=== PATIENT | male | born 1980 | race Caucasian/White ===

== ENCOUNTER 2021-10-30 18:08 | Emergency (ER) | payer BC, SELFPAY ==
[2021-10-30 18:19] VITALS: BP 163/79; PULSE 87; RESP 16; TEMP 36.6; O2SAT 98
--- NOTE | 2021-10-30 18:22 | ED.URI ---
HPI - URI/Sore Throat General Chief Complaint: Upper Respiratory Infection Stated Complaint: Sore throat Time Seen by Provider: 10/30/21 18:35 Source: patient and RN notes reviewed Mode of arrival: ambulatory Limitations: no limitations History of Present Illness HPI Narrative: 41-year-old male presents with concern for sore throat, right ear pain, painful swallowing, painful opening of the mouth. Reports 2-day history of symptoms. He reports trouble taking medications because of the painful swallowing. Reports his was previously diagnosed with strep throat. He denies drooling. Reports he is able to swallow, however it is painful MD elicited complaint: cough and sore throat Related Data Allergies Allergy/AdvReac Type Severity Reaction Status Date / Time No Known Allergies Allergy Unverified 10/30/21 18:22 Review of Systems Review of Systems: CONSTITUTIONAL: Denies malaise, chills, sweats, or fever. EYES: Denies visual changes, redness, or discharge. ENT: Denies rhinorrhea, congestion, sinus pain. Reports otalgia and sore throat. CARDIOVASCULAR: Denies chest pain, palpitations, or edema. RESPIRATORY: Reports cough. Denies dyspnea. GASTROINTESTINAL: Denies abdominal pain, nausea, vomiting, diarrhea SKIN: Denies rash or itching. MUSCULOSKELETAL: Denies myalgia. NEUROLOGIC: Denies headache. All systems reviewed & are unremarkable except as noted in HPI and below PMFSH Family History Family History (Updated 03/14/10 @ 08:57 by DOCTOR UNKNOWN) Other Family history of mental disorder Social History Social History Alcohol intake: current Comments At time of signature, agree with nursing past medical, surgical, social and family history. There is no relevant family history pertinent to the presenting complaint Exam Narrative: GENERAL: Well-appearing, well-nourished, and in no acute distress. HEAD: Normocephalic EYES: PERRLA, conjunctivae clear ENT: Nares clear. Mucous membranes moist. TM pearly arroyo with dull light reflex bilaterally; no tragal tenderness. Oropharynx erythematous without lesions. Right tonsil enlarged with white exudate, no drooling, no hoarseness, no trismus, uvula midline. No peritonsillar abscess visible, no hot potato voice NECK: Supple. No lymphadenopathy CHEST: Clear to auscultation, breath sounds equal. No wheezing, rhonchi, rales, or stridor. No respiratory distress, speaks in full sentences. HEART: Regular rate and rhythm. No murmur heard. SKIN: Warm, dry, no rash. NEURO: Alert and oriented x3. PSYCH: Normal mood and affect Course Course Emergency Course: Due to the size of the patient's right tonsil and amount of exudate, patient's report of difficulty swallowing medication will treat with IM Rocephin and Solu-Medrol to be followed up with p.o. penicillin and Medrol Dosepak. Patient given strict instructions for return to the emergency room. Patient is aware of diagnosis, understands and agrees to treatment plan. Anticipatory guidance given. Patient agrees to follow-up as directed and is aware of reasons to seek care at the emergency department. Portions of this record may have been created with voice recognition software Level of Care: Express Care Visit Vital Signs Vital signs: Reviewed. MDM - URI/Sore Throat MDM Narrative Medical decision making narrative: Differential diagnosis considered: Joshua virus, strep pharyngitis, allergic rhinitis, upper respiratory tract infection, sinusitis, rhinosinusitis, nasopharyngitis. viral pharyngitis, otitis media, otitis externa, pneumonia, bronchitis, viral cough syndrome, viral syndrome, and influenza. Exam findings show no acute concerns or changes; patient is non-toxic appearing and is in no distress. Patient is appropriate for outpatient treatment and follow-up. Lab Data Attestation: I reviewed the patient's lab results. Critical Care Time Critical Care Time Critical Care Time: No Discharge Plan Discharge Clinical I
[2021-10-30 18:29] VITALS: BP 163/79; PULSE 87; RESP 16; TEMP 36.6; O2SAT 98
[2021-10-30] MEDS: methylPREDNISolone SOD SUCC 125 MG VIAL IM (18:46)
[2021-10-30] MEDS: cefTRIAXone 1 GM, LIDOCAINE HCL 1% LOCAL INJ 2.1 ML IM (18:47)
== END 2021-10-30 19:17 | disposition home or self-care (01) ==
PROVIDERS: Emergency Provider Nurse Practitioner
DX: J02.9 Acute pharyngitis, unspecified (principal)
CPT/HCPCS: 87081; 87880; 96372; 99204; G0463; J0696; J2930

== ENCOUNTER 2021-11-09 17:13 | Emergency (ER) | payer BC, SELFPAY ==
--- NOTE | 2021-11-09 17:17 | ED.EAR ---
HPI - Ear Problem General Chief complaint: Ear Stated complaint: Ear infection Time Seen by Provider: 11/09/21 17:18 Source: patient and RN notes reviewed History of Present Illness HPI Narrative: Patient is a 41-year-old male who presents to the urgent care with complaints of right ear pain since Friday. Patient states that he was recently on amoxicillin for strep throat however that antibiotic has been completed. Patient denies any other upper respiratory complaints. Patient states that he has been using Tylenol and Advil for pain. No other acute complaints. No acute distress noted. Patient aware of the plan of care. Some parts of this dictation were generated by voice recognition software and may contain typographical and/or grammatical inaccuracies. Related Data Allergies Allergy/AdvReac Type Severity Reaction Status Date / Time No Known Allergies Allergy Unverified 10/30/21 18:22 Review of Systems Review of Systems: CONSTITUTIONAL: Denies fever, chills, or sweats. EYES: Denies visual changes, redness, or discharge. ENT: Denies rhinorrhea, congestion, sore throat. reports of right otalgia CARDIOVASCULAR: Denies chest pain, palpitations, or edema. RESPIRATORY: Denies cough or dyspnea. GASTROINTESTINAL: Denies abdominal pain, nausea, vomiting, or diarrhea. GENITOURINARY: Denies dysuria or hematuria. SKIN: Denies rash or itching. MUSCULOSKELETAL: Denies back pain, joint pain, or myalgia. NEUROLOGIC: Denies headache, numbness, or weakness. All other systems reviewed are negative, except as documented in HPI. REPLACED BY [facility] Family History Family History (Updated 03/14/10 @ 08:57 by DOCTOR UNKNOWN) Other Family history of mental disorder Social History Social History Alcohol intake: current Comments At the time of my signature, I reviewed and agree with the nursing past medical, surgical, social, and family history. There is no relevant family history pertinent to the patient complaint. Exam Narrative: GENERAL: This is a well-nourished, well-developed patient, in no apparent distress. HEAD: normocephalic, atraumatic. EYES: PERRL. Sclera clear/white. Vision is grossly intact. EARS: External ears normal, completely occluded right auditory canal with thick yellow drainage and inability to visualize right TM. Left auditory canal within normal limits with no otitis externa/media. Left TM within normal limits NOSE: External nose normal with no obvious nasal discharge, nares without redness, no rhinorrhea. THROAT: Mucous membranes moist, posterior pharynx clear. NECK: Neck supple CARDIOVASCULAR: Regular rate and rhythm without murmurs, gallops, or rubs. RESPIRATORY: Clear to auscultation. Breath sounds equal bilaterally. No wheezes, rales, or rhonchi. SKIN: warm, intact with no suspicious lesions or rash, good texture and turgor. NEURO: awake, alert, and oriented to person, place and time. There were no obvious focal neurologic abnormalities. EXTREMITIES: No clubbing, cyanosis, or edema. Course Course Level of Care: Express Care Visit Vital Signs Vital signs: Vital Signs Temperature 98.5 F 11/09/21 17:25 Pulse Rate 83 11/09/21 17:25 Respiratory Rate 18 11/09/21 17:25 Blood Pressure 131/77 11/09/21 17:25 Pulse Oximetry 100 11/09/21 17:25 Oxygen Delivery Room Air 11/09/21 17:25 Temperature 98.5 F 11/09/21 17:28 Pulse Rate 83 11/09/21 17:28 Respiratory Rate 18 11/09/21 17:28 Blood Pressure 131/77 11/09/21 17:28 Pulse Oximetry 100 11/09/21 17:28 Oxygen Delivery Room Air 11/09/21 17:28 Reviewed Medical Decision Making MDM Narrative Medical decision making narrative: Advised the patient not to submerge his head in any water or use Q-tips, peroxide, [id number] eardrops in the ear. Use the eardrops to the right ear as directed. May use a warm or cool compress to the ear as needed for discomfort. Use Tylenol/ibuprofen as needed. Complete the oral antibiotic reg
[2021-11-09 17:25] VITALS: BP 131/77; PULSE 83; RESP 18; TEMP 36.9; O2SAT 100
[2021-11-09 17:28] VITALS: BP 131/77; PULSE 83; RESP 18; TEMP 36.9; O2SAT 100
== END 2021-11-09 18:07 | disposition home or self-care (01) ==
PROVIDERS: Emergency Provider Nurse Practitioner Family
DX: H60.501 Unspecified acute noninfective otitis externa, right ear (principal)
CPT/HCPCS: 99213; G0463

== ENCOUNTER 2022-05-16 14:01 | Outpatient (CLI) | payer BC, SELFPAY ==
[2022-05-16 19:16] LABS: Basophils Percent Auto 0.5 % (0.2-1.2); Eosinophils Absolute Auto 0.2 K/mm3 (0-0.3); Eosinophils Percent Auto 2.3 % (0-4.4); Hematocrit 45.4 % (42.0-52.0); Hemoglobin 15.2 g/dL (14.0-18.0); Immature Granulocyte Absolute 0.05 K/mm3 (0.00-0.031); Immature Granulocyte Percent A 0.6 % (0-0.5); Lymphocytes Absolute Auto 2.71 K/mm3 (0.9-3.2); Lymphocytes Percent Auto 32.3 % (18.3-44.2); Mean Corpuscular HGB Conc 33.5 g/dl (32-36); Mean Corpuscular Hemoglobin 31.1 pg (26-34); Mean Platelet Volume 9.9 fl (7.4-10.4); Monocytes Absolute Auto 0.6 K/mm3 (0.1-0.6); Monocytes Percent Auto 7.3 % (2.6-8.5); Neutrophils Absolute Auto 4.8 K/mm3 (1.3-6.7); Platelet Count Result 254 k/mm3 (150-375); Red Blood Count 4.88 M/mm3 (4.6-6.20); White Blood Count 8.4 K/mm3 (4.5-10.0)
[2022-05-16 20:07] LABS: Alanine Aminotransferase 33 U/L (6-50); Albumin Level 4.3 g/dL (3.5-5.1); Alkaline Phosphatase 93 U/L (38-126); Anion Gap 8 mmol/L (8-16); Aspartate Amino Transferase 33 U/L (17-59); Bilirubin,Total 0.2 mg/dL (0.2-1.3); Blood Urea Nitrogen 17 mg/dL (9-20); Carbon Dioxide 25 mmol/L (22-30); Chloride 110 mmol/L (98-107); Cholesterol 211 mg/dL (0-200); Estimated Glomerular Filt Rate > 60; Glucose 118 mg/dL (65-110); HDL Direct 30 mg/dL; Potassium 4.3 mmol/L (3.4-5.0); Sodium 143 mmol/L (137-145); Triglycerides 506 mg/dL (<150)
[2022-05-16 20:17] LABS: LDL Cholesterol Direct 105 mg/dL
== END 2022-05-16 14:02 | disposition home or self-care (01) ==
LOC: ANHBWCLAB 14:03
PROVIDERS: PCP Family Medicine; Visit Provider Family Medicine
DX: Z00.00 Encounter for general adult medical examination without abnormal findings (principal)
CPT/HCPCS: 36415; 80053; 80061; 85025

== ENCOUNTER 2023-01-06 14:07 | Outpatient (CLI) | payer BC, SELFPAY ==
[2023-01-06 19:00] LABS: Appearance Urine Clear (Clear); Bilirubin Urine Negative (Negative); Blood Urine Negative (Negative); Color Urine Yellow (Yellow); Glucose Urine UA 3+ mg/dL (Negative); Ketones Urine Trace mg/dL (Negative); Leukocyte Esterase Ur Negative LEU/UL (Negative); Nitrate Urine Negative (Negative); Protein Urine Negative (Negative); Urobilinogen Urine 0.2 mg/dL (<2.0); pH Urine 5.5 (5.0-9.0)
[2023-01-06 19:07] LABS: Hematocrit 48.1 % (42.0-52.0); Hemoglobin 18.2 g/dL (14.0-18.0); Mean Corpuscular HGB Conc 37.8 g/dl (32-36); Mean Corpuscular Hemoglobin 34.5 pg (26-34); Mean Corpuscular Volume 91.3 fl (80-100); Mean Platelet Volume 10.9 fl (7.4-10.4); Platelet Count Result 241 k/mm3 (150-375); Red Blood Count 5.27 M/mm3 (4.6-6.20); Red Cell Distribution Width 12.6 % (11.5-14.5); Specific Grav Ur 1.038 (1.001-1.035); White Blood Count 10.3 K/mm3 (4.5-10.0)
[2023-01-06 19:08] LABS: Add Urine Microscopic? NO
[2023-01-06 19:47] LABS: Alanine Aminotransferase 51 U/L (6-50); Alkaline Phosphatase 162 U/L (38-126); Anion Gap 13 mmol/L (8-16); Aspartate Amino Transferase 30 U/L (17-59); Bilirubin,Total 0.7 mg/dL (0.2-1.3); Blood Urea Nitrogen 19 mg/dL (9-20); Carbon Dioxide 21 mmol/L (22-30); Chloride 91 mmol/L (98-107); Estimated Glomerular Filt Rate 60; Glucose 615 mg/dL (65-110); LDL Cholesterol Direct 156 mg/dL; Potassium 4.7 mmol/L (3.4-5.0); Sodium 125 mmol/L (137-145); Triglycerides > 2625 mg/dL (<150)
[2023-01-06 19:48] LABS: Cholesterol 501 mg/dL (0-200)
[2023-01-06 20:54] LABS: Hemoglobin A1C 10.8 % (<5.7)
== END 2023-01-06 14:08 | disposition home or self-care (01) ==
LOC: ANHBWCLAB 14:09
PROVIDERS: PCP Family Medicine; Visit Provider Nurse Practitioner Adult Health
DX: R73.09 Other abnormal glucose (principal); E78.5 Hyperlipidemia, unspecified; R63.4 Abnormal weight loss; R39.9 Unspecified symptoms and signs involving the genitourinary system
CPT/HCPCS: 36415; 80053; 80061; 81003; 83036; 84443; 85027

== ENCOUNTER 2023-01-06 23:03 | Inpatient (IN) | payer BC, SELFPAY ==
[2023-01-06 23:07] VITALS: BP 159/94; PULSE 110; RESP 20; TEMP 36.6; O2SAT 93
[2023-01-06 23:27] LABS: Glucose Point of Care > 500 mg/dl (65-105)
[2023-01-06 23:31] LABS: Basophils Absolute Auto 0.1 K/mm3 (0.0-0.1); Basophils Percent Auto 0.5 % (0.2-1.2); Eosinophils Absolute Auto 0.1 K/mm3 (0-0.3); Eosinophils Percent Auto 0.6 % (0-4.4); Hematocrit 45.8 % (42.0-52.0); Hemoglobin 17.3 g/dL (14.0-18.0); Immature Granulocyte Absolute 0.03 K/mm3 (0.00-0.031); Immature Granulocyte Percent A 0.3 % (0-0.5); Lymphocytes Absolute Auto 2.59 K/mm3 (0.9-3.2); Lymphocytes Percent Auto 27.2 % (18.3-44.2); Mean Corpuscular HGB Conc 37.8 g/dl (32-36); Mean Corpuscular Hemoglobin 34.3 pg (26-34); Mean Corpuscular Volume 90.7 fl (80-100); Mean Platelet Volume 10.5 fl (7.4-10.4); Monocytes Absolute Auto 0.8 K/mm3 (0.1-0.6); Monocytes Percent Auto 8.4 % (2.6-8.5); Platelet Count Result 245 k/mm3 (150-375); Red Blood Count 5.05 M/mm3 (4.6-6.20); Red Cell Distribution Width 12.5 % (11.5-14.5); White Blood Count 9.5 K/mm3 (4.5-10.0)
[2023-01-07] VITALS (16 sets, daily range): BP systolic 127–160; BP diastolic 59–102; PULSE 68–94; RESP 14–22; TEMP 36.8–37; O2SAT 95–100; BMI 34.1
[2023-01-07 00:22] LABS: Alanine Aminotransferase 50 U/L (6-50); Albumin Level 4.1 g/dL (3.5-5.1); Alkaline Phosphatase 152 U/L (38-126); Aspartate Amino Transferase 33 U/L (17-59); Bilirubin,Total 0.8 mg/dL (0.2-1.3); Blood Urea Nitrogen 22 mg/dL (9-20); Calcium 8.9 mg/dL (8.4-10.2); Chloride 89 mmol/L (98-107); Estimated CRCL calculation 101 ml/min; Estimated Glomerular Filt Rate > 60; Glucose 794 mg/dL (65-110); Magnesium 1.9 mg/dL (1.6-2.3); Potassium 5.1 mmol/L (3.4-5.0); Sodium 119 mmol/L (137-145)
[2023-01-07] MEDS: SODIUM CHLORIDE 0.9% IV 2,000 ML 999 ML (01:27)
[2023-01-07] MEDS: SODIUM CHLORIDE 0.9% IV 1,000 ML 999 ML IV CONT (02:15)
--- NOTE | 2023-01-07 02:40 | ED.GENADULT ---
HPI - General Adult General Chief complaint: Recheck/Abnormal Lab/Rx Stated complaint: high BS Time Seen by Provider: 01/07/23 01:45 History of Present Illness HPI narrative: Patient for 2-year-old gentleman who presents the emergency department chief complaint of hyperglycemia. The patient reports that he has been thirsty all the time peeing all the time and reports that he saw his primary care provider and had outpatient labs done today they were showed a blood sugar in the 600s and his primary doctor sent him to the emergency department for possible HHS. Patient denies fever denies cough denies shortness of breath denies abdominal pain. Patient reports no prior history of diabetes. Related Data Home Medications Medication Instructions Recorded Confirmed Vicoprofin BYMOUTH 05/16/22 01/06/23 Allergies Allergy/AdvReac Type Severity Reaction Status Date / Time No Known Allergies Allergy Unverified 01/06/23 13:39 Review of Systems Review of Systems: A 10 system review of systems was completed on the patient and is negative except for what is stated in the HPI. Nursing and ancillary documentation was reviewed. [facility] Family History Family History Father Asthma History of ETOH abuse Sibling History of ETOH abuse Grandparent Cancer Other Family history of mental disorder Social History Social History Smoking packs per day: 1 Smoking cigarettes per day: 20.0 Smoking status: Former smoker Tobacco type: cigarettes Alcohol intake: current Alcohol use details: occasionally Substance use: never Substance use type: does not use Lack of Transportation: No Lack of Food: Never True Current Housing: I Have Housing Concerned About Future Housing: No Difficulty Paying Gas/Electric Bills: No Difficulty Paying for Meds: No Currently Unemployed: No Education: Decline to Answer Difficulty w/ Childcare or Family Care: Decline to Answer Living arrangements: alone Occupation/Education: occupation 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 HEAD: Normocephalic, atraumatic. EYES: PERRLA and EOMI. ENT: Nares clear, no rhinorrhea or epistaxis. Mucous membranes moist. NECK: Supple. CHEST: Clear to auscultation. No respiratory distress. HEART: Regular rate and rhythm. No murmur heard. Normal peripheral pulses. ABDOMEN: Soft, nontender, nondistended, normal active bowel sounds. EXTREMITIES: Normal range of motion. No edema. SKIN: Warm, dry, no rash. NEURO: No focal deficits. Alert and oriented x3. PSYCH: Normal mood and affect. Course Vital Signs Vital signs: Vital Signs Temperature 36.6 C 01/06/23 23:07 Pulse Rate 110 H 01/06/23 23:07 Respiratory Rate 20 01/06/23 23:07 Blood Pressure 159/94 H 01/06/23 23:07 Pulse Oximetry 93 01/06/23 23:07 Oxygen Delivery Room Air 01/06/23 23:07 Temperature 36.6 C 01/06/23 23:07 Pulse Rate 92 01/07/23 02:20 Respiratory Rate 15 01/07/23 02:20 Blood Pressure 160/102 H 01/07/23 02:20 Pulse Oximetry 98 01/07/23 02:20 Oxygen Delivery Room Air 01/06/23 23:07 Medical Decision Making MDM Narrative Medical decision making narrative: Differential diagnosis includes DKA, HHS, hyperglycemia. Laboratory studies were obtained on the patient which showed a sodium of 119 potassium of 5.1 BUN of 22 creatinine 1.2 serum glucose was 794. Patient was given 3 L of normal saline in the emergency department and will be continued on hydration given the significantly elevated blood sugars the patient was started on insulin drip. Beta hydroxybutyrate was 0.2 and the patient shows no signs of
[2023-01-07 03:09] LABS: Hemoglobin A1C 10.9 % (<5.7)
[2023-01-07] MEDS: INSULIN HUMAN REGULAR (*BKC) 100 UNITS in SODIUM CHLORIDE 0.9% IV 99 ML 14.7 UNITS IV CONT (03:22)
[2023-01-07] MEDS: HYDROcodone/acetaminophen (*CRX) 10-325 MG TABLET 1 TAB PO ×4 (03:31→19:00)
[2023-01-07 03:56] LABS: Glucose Point of Care 423 mg/dl (65-105)
[2023-01-07 04:49] LABS: Blood Urea Nitrogen 19 mg/dL (9-20); Calcium 8.2 mg/dL (8.4-10.2); Chloride 101 mmol/L (98-107); Estimated CRCL calculation 120 ml/min; Estimated Glomerular Filt Rate > 60; Glucose 339 mg/dL (65-110); Magnesium 1.9 mg/dL (1.6-2.3); Phosphorus 4.1 mg/dL (2.5-4.5); Potassium 4.2 mmol/L (3.4-5.0); Sodium 132 mmol/L (137-145)
[2023-01-07 04:59] LABS: Glucose Point of Care 329 mg/dl (65-105)
[2023-01-07] MEDS: SODIUM CHLORIDE 0.9% IV 1,000 ML 150 ML IV CONT (05:04)
--- NOTE | 2023-01-07 05:09 | ADMGEN ---
This patient, Shyam Joel, was admitted to Intensive Care Unit-6. Patient/family oriented to hospital policies and general routines including ID bracelet, bed and alarms, visiting hours, pain management, procedures, bathroom and other care routines, personal items, smoking policy, room service/diet, and visiting hours. Information on how to activate the Rapid Response Team has been discussed. Patient/Family are encouraged to report perceived risks to care and to ask questions if they do not understand what they are told or what they should do.
[2023-01-07 06:04] LABS: Glucose Point of Care 264 mg/dl (65-105)
[2023-01-07 06:57] LABS: Glucose Point of Care 199 mg/dl (65-105)
--- NOTE | 2023-01-07 07:35 | PM.IMHP ---
H&P: HPI History of Present Illness Date/Time: 01/07/23 07:35 Chief Complaint: hyperglycemia Narrative: 42-year-old male with history of ankle injury on chronic hydrocodone is presenting with hyperglycemia complaining of polyuria and polydipsia for the last several days. He has no family history or personal history of hyperglycemia or diabetes. No chest pain or shortness of breath. No nausea, vomiting or diarrhea. No fevers or chills. He did note some brain fogginess and went to his PCP who did some fasting blood work. When his sugar came back over 600 they called him and told him to go to the ER. In the ER, he was started on insulin drip and sent to the ICU for further management. Review of Systems Review of Systems: 12 point review of systems was assessed and was negative except as noted in the HPI [facility] Family History Family History Father Asthma History of ETOH abuse Sibling History of ETOH abuse Grandparent Cancer Other Family history of mental disorder Social History Social History Smoking packs per day: 0.75 Smoking cigarettes per day: 15.0 Years smoked: 28 Smoking pack-years: 21.00 Smoking status: Current every day smoker Tobacco type: cigarettes Alcohol intake: never Alcohol use details: occasionally Substance use: never Substance use type: does not use Lack of Transportation: No Lack of Food: Never True Current Housing: I Have Housing Concerned About Future Housing: No Difficulty Paying Gas/Electric Bills: No Difficulty Paying for Meds: No Currently Unemployed: No Education: Decline to Answer Difficulty w/ Childcare or Family Care: No Living arrangements: alone Occupation/Education: occupation 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 Gender identity (if verbalized by the patient): Male Spiritual care concerns: No Agree to blood products: Yes Meds Home Medications and Allergies Home Medications Medication Instructions Recorded Confirmed Type hydrocodone 10 mg-acetaminophen 1 tablet PO Q6H PRN pain 01/07/23 01/07/23 History 325 mg tablet Allergies Allergy/AdvReac Type Severity Reaction Status Date / Time No Known Allergies Allergy Unverified 01/06/23 13:39 Vital Signs Vital Signs - 24 hr 01/06/23 23:07 01/07/23 02:20 01/07/23 04:01 Temperature 97.8 F Pulse Rate 110 H 92 90 Respiratory Rate 20 15 15 Blood Pressure 159/94 H 160/102 H 160/98 H Pulse Oximetry 93 98 100 Oxygen Delivery Room Air 01/07/23 05:16 01/07/23 06:00 01/07/23 06:00 Temperature Pulse Rate 80 80 87 Respiratory Rate 18 Blood Pressure 135/82 Pulse Oximetry 96 Oxygen Delivery Room Air 01/07/23 04:30 Temperature 98.5 F Pulse Rate 89 Respiratory Rate 17 Blood Pressure 151/93 H Pulse Oximetry 95 Oxygen Delivery Exam Narrative: General: No acute distress, alert and oriented per baseline HEENT: Atraumatic, normocephalic, mucous membranes moist CV: Regular rate and rhythm, S1, S2 Lungs: Clear to auscultation bilaterally, no rales or crackles noted, no wheezes, good air entry Abdomen: Soft, nontender, nondistended Extremities: Normal to inspection Skin: No rashes noted, no lesions or wounds seen Psych: Euthymic, normal affect H&P: Results Labs Labs: Short CBC 01/06/23 Range/Units 23:21 WBC 9.5 (4.5-10.0) K/mm3 Hgb 17.3 (14.0-18.0) g/dL Hct 45.8 (42.0-52.0) % Plt Count 245 (150-375) k/mm3 [facility] 01/06/23 01/07/23 23:21 04:07 Sodium 119 L* 132 L Potassium 5.1 H 4.2 Chloride 89 L 101 Carbon Dioxide TNP TNP BUN 22 H 19 Creatinine 1.20 1.00 Glucose 794 H* 339 H Calcium 8.9 8.2 L Liver Function 01/06/23 Range/Units 23:21 Total Bilirubin 0.8 (0.2-1.3) mg/dL AST 33 (17-59) U/L ALT 50 (6-50) U/L Alk
[2023-01-07 08:07] LABS: Glucose Point of Care 146 mg/dl (65-105)
[2023-01-07 09:06] LABS: Basophils Percent Auto 0.4 % (0.2-1.2); Eosinophils Absolute Auto 0.2 K/mm3 (0-0.3); Eosinophils Percent Auto 2.1 % (0-4.4); Hematocrit 40.7 % (42.0-52.0); Hemoglobin 15.2 g/dL (14.0-18.0); Immature Granulocyte Absolute 0.03 K/mm3 (0.00-0.031); Immature Granulocyte Percent A 0.4 % (0-0.5); Lymphocytes Absolute Auto 2.72 K/mm3 (0.9-3.2); Mean Corpuscular HGB Conc 37.3 g/dl (32-36); Mean Corpuscular Hemoglobin 33.2 pg (26-34); Mean Corpuscular Volume 88.9 fl (80-100); Mean Platelet Volume 10.1 fl (7.4-10.4); Monocytes Absolute Auto 0.5 K/mm3 (0.1-0.6); Monocytes Percent Auto 6.6 % (2.6-8.5); Neutrophils Absolute Auto 4.3 K/mm3 (1.3-6.7); Neutrophils Percent Auto 55.5 % (45.5-73.1); Platelet Count Result 197 k/mm3 (150-375); Red Blood Count 4.58 M/mm3 (4.6-6.20); Red Cell Distribution Width 12.4 % (11.5-14.5); White Blood Count 7.8 K/mm3 (4.5-10.0)
--- NOTE | 2023-01-07 09:28 | WPDCNINT ---
Assessment and Plan Assessment and plan (1) Hyperosmolar hyperglycemic state (HHS): Code(s): E11.00 - Type 2 diabetes mellitus with hyperosmolarity without nonketotic hyperglycemic-hyperosmolar coma (NKHHC) Status: Acute Assessment and Plan: Patient appears to have a new onset of diabetes mellitus and presented with elevated blood sugars and dehydration Ketones were negative No objective sign of infection Patient was given IV fluid bolus and started on IV fluid infusion which will be continued IV insulin infusion we continued. Although his blood sugars improved IV insulin infusion will be continued due to hypertriglyceridemia Serial labs are being done Consult unit educator and dietitian P.r.n. Dani (2) Hypertriglyceridemia: Code(s): E78.1 - Pure hyperglyceridemia Status: Acute Assessment and Plan: Continue IV insulin. I will add dextrose to IV fluids once I am able to get electrolytes confirmed Patient sample has hemolyzed multiple times and lab is unable to run electrolytes. This could be secondary to lipemia Continue IV insulin at current rate long with normal saline. Once potassium level is back, I will change IV fluids to dextrose to increase the insulin rate.. Continue monitoring triglyceride level Add statin Check lipase (3) Type 2 diabetes mellitus: Code(s): E11.9 - Type 2 diabetes mellitus without complications Status: Acute Assessment and Plan: See above (4) Right ankle pain: Code(s): M25.571 - Pain in right ankle and joints of right foot Status: Acute Assessment and Plan: P.r.n. hydrocodone (5) Tobacco abuse: Code(s): Z72.0 - Tobacco use Status: Acute Assessment and Plan: Patient was encouraged and counseled to quit smoking. Plan DVT prophylaxis -patient is ambulating Stress ulcer prophylaxis -he is on PPI Nutrition -low-fat diabetic diet Code Status - Full Code Total Critical Care Time - 32 minutes Due to a high probability of clinically significant, life threatening deterioration, the patient required my highest level of preparedness to intervene emergently and I personally spent this critical care time directly and personally managing the patient. This critical care time included obtaining a history; examining the patient; pulse oximetry; ordering and review of studies; arranging urgent treatment with development of a management plan; evaluation of patient's response to treatment; frequent reassessment; and discussions with other providers. It was exclusive of separately billable procedures and treating other patients and teaching time. Please see Assessment and Plan section and the rest of the note for further information on patient assessment and treatment Study Manager Consult Note Consult date: 01/07/23 Reason for consult: Hyperglycemia HPI: Shyam Joel is a 42 year old male with significant past medical history who presented to ER yesterday with chief complaint of polyuria and polydipsia for last 5-6 days. Patient states he has been feeling sick for last 1 week. He was urinating every 20-30 minutes. No blood in the urine. No dysuria. He was also drinking lot of water. Along with patient had nausea and vomiting. He also felt weak and tired. His appetite was down and he had lost weight last few weeks. He denied any chest pain shortness of breath abdominal pain fever cough. Denies any dysuria hematuria hematochezia melena hemoptysis. Review of system was positive for chronic pain in the right ankle from past injury and surgery for which he takes hydrocodone at home. All other systems were reviewed and were negative In ER patient was found to be hyperglycemic with blood sugar above 700, his ketones were negative he had triglyceride level above 2000. Patient was admitted with diagnosis of hyperosmolar state and started on IV fluids and IV insulin infusion. Patient was admitted to ICU for further evalua
[2023-01-07] MEDS: PANTOPRAZOLE SODIUM IV 40 MG VIAL IV PUSH (09:30)
[2023-01-07] MEDS: ATORVASTATIN 40 MG TABLET 80 MG PO (09:30)
[2023-01-07 09:39] LABS: Glucose Point of Care 141 mg/dl (65-105)
[2023-01-07 09:55] LABS: Sodium 133 mmol/L (137-145)
[2023-01-07 09:56] LABS: Bilirubin,Total 0.6 mg/dL (0.2-1.3); Blood Urea Nitrogen 15 mg/dL (9-20); Chloride 107 mmol/L (98-107); Estimated CRCL calculation 147 ml/min; Estimated Glomerular Filt Rate > 60
[2023-01-07 09:57] LABS: Alanine Aminotransferase 36 U/L (6-50); Albumin Level 3.6 g/dL (3.5-5.1); Alkaline Phosphatase 84 U/L (38-126); Aspartate Amino Transferase 28 U/L (17-59); Glucose 128 mg/dL (65-110)
[2023-01-07 09:58] LABS: Cholesterol 396 mg/dL (0-200)
[2023-01-07 10:29] LABS: Hemoglobin A1C 11.2 % (<5.7)
[2023-01-07 10:52] LABS: Glucose Point of Care 267 mg/dl (65-105)
[2023-01-07] MEDS: KCL 20 MEQ/D5/0.45% SOD CHL 1,000 ML 150 ML IV CONT ×2 (10:53→17:00)
--- NOTE | 2023-01-07 11:56 | PC.NURSE ---
Outpatient referral started for outpatient DSMT and MNT. Faxed to PCP- Soto Ahuja.
[2023-01-07 12:19] LABS: Glucose Point of Care 262 mg/dl (65-105)
[2023-01-07] MEDS: NICOTINE (*PBKC) 14 MG PATCH 1 PATCH TRANSDERM (12:56)
[2023-01-07] MEDS: INSULIN HUMAN REGULAR (*BKC) 100 UNITS in SODIUM CHLORIDE 0.9% IV 99 ML 14.14 UNITS IV CONT (12:58)
[2023-01-07 13:02] LABS: Glucose Point of Care 263 mg/dl (65-105)
[2023-01-07 14:07] LABS: Glucose Point of Care 196 mg/dl (65-105)
[2023-01-07 15:09] LABS: Glucose Point of Care 177 mg/dl (65-105)
[2023-01-07 16:06] LABS: Glucose Point of Care 176 mg/dl (65-105)
[2023-01-07 17:06] LABS: Glucose Point of Care 136 mg/dl (65-105)
[2023-01-07 17:55] LABS: Potassium 4.8 mmol/L (3.5-4.9); Sodium 136 mmol/L (138-146)
[2023-01-07 17:57] LABS: Chloride 108 mmol/L (98-109)
[2023-01-07 17:58] LABS: Blood Urea Nitrogen 19 mg/dL (9-20); Estimated CRCL calculation 45 ml/min; Estimated Glomerular Filt Rate > 60; Glucose 116 mg/dL (65-110)
[2023-01-07 18:06] LABS: Glucose Point of Care 211 mg/dl (65-105)
[2023-01-07 19:05] LABS: Glucose Point of Care 207 mg/dl (65-105)
[2023-01-07] MEDS: INSULIN HUMAN REGULAR (*BKC) 100 UNITS in SODIUM CHLORIDE 0.9% IV 99 ML 19.9 UNITS IV CONT (20:20)
[2023-01-07 20:49] LABS: Glucose Point of Care 226 mg/dl (65-105)
[2023-01-07 21:20] LABS: Sodium 134 mmol/L (138-146)
[2023-01-07 21:21] LABS: Chloride 107 mmol/L (98-109); Potassium 4.4 mmol/L (3.5-4.9)
[2023-01-07 21:22] LABS: Blood Urea Nitrogen 20 mg/dL (8-26)
[2023-01-07 21:23] LABS: Estimated CRCL calculation 41 ml/min; Estimated Glomerular Filt Rate > 60; Glucose 195 mg/dL (70-105)
[2023-01-07 21:24] LABS: Calcium 7.8 mg/dL (8.4-10.2)
[2023-01-07 22:25] LABS: Glucose Point of Care 203 mg/dl (65-105)
[2023-01-08] VITALS (34 sets, daily range): BP systolic 126–145; BP diastolic 64–96; PULSE 60–88; RESP 12–35; TEMP 36.6–36.9; O2SAT 95–97
[2023-01-08 00:08] LABS: Glucose Point of Care 219 mg/dl (65-105)
[2023-01-08] MEDS: HYDROcodone/acetaminophen (*CRX) 10-325 MG TABLET 1 TAB PO ×4 (00:10→18:02)
[2023-01-08] MEDS: KCL 20 MEQ/D5/0.45% SOD CHL 1,000 ML 150 ML IV CONT ×4 (00:11→19:27)
[2023-01-08 01:14] LABS: Blood Urea Nitrogen 21 mg/dL (8-26); Calcium 7.7 mg/dL (8.4-10.2); Chloride 107 mmol/L (98-109); Estimated CRCL calculation 41 ml/min; Estimated Glomerular Filt Rate > 60; Glucose 196 mg/dL (70-105); Potassium 4.5 mmol/L (3.5-4.9); Sodium 135 mmol/L (138-146)
[2023-01-08 01:37] LABS: Glucose Point of Care 208 mg/dl (65-105)
[2023-01-08] MEDS: INSULIN HUMAN REGULAR (*BKC) 100 UNITS in SODIUM CHLORIDE 0.9% IV 99 ML 20.7 UNITS IV CONT (01:38)
[2023-01-08 03:37] LABS: Glucose Point of Care 108 mg/dl (65-105)
[2023-01-08 04:54] LABS: Glucose Point of Care 125 mg/dl (65-105)
[2023-01-08 05:08] LABS: Basophils Percent Auto 0.4 % (0.2-1.2); Eosinophils Absolute Auto 0.1 K/mm3 (0-0.3); Eosinophils Percent Auto 1.7 % (0-4.4); Hematocrit 39.6 % (42.0-52.0); Immature Granulocyte Absolute 0.05 K/mm3 (0.00-0.031); Immature Granulocyte Percent A 0.7 % (0-0.5); Lymphocytes Absolute Auto 2.78 K/mm3 (0.9-3.2); Lymphocytes Percent Auto 38.4 % (18.3-44.2); Mean Corpuscular HGB Conc 35.4 g/dl (32-36); Mean Corpuscular Hemoglobin 32.4 pg (26-34); Mean Corpuscular Volume 91.7 fl (80-100); Monocytes Absolute Auto 0.4 K/mm3 (0.1-0.6); Monocytes Percent Auto 5.8 % (2.6-8.5); Neutrophils Absolute Auto 3.8 K/mm3 (1.3-6.7); Platelet Count Result 173 k/mm3 (150-375); Red Blood Count 4.32 M/mm3 (4.6-6.20); Red Cell Distribution Width 12.3 % (11.5-14.5); White Blood Count 7.2 K/mm3 (4.5-10.0)
[2023-01-08 05:46] LABS: Alanine Aminotransferase 39 U/L (6-50); Albumin Level 3.1 g/dL (3.5-5.1); Alkaline Phosphatase 84 U/L (38-126); Anion Gap 5 mmol/L (8-16); Aspartate Amino Transferase 36 U/L (17-59); Bilirubin,Total 0.4 mg/dL (0.2-1.3); Blood Urea Nitrogen 12 mg/dL (9-20); Carbon Dioxide 22 mmol/L (22-30); Chloride 108 mmol/L (98-107); Estimated CRCL calculation 148 ml/min; Estimated Glomerular Filt Rate > 60; Glucose 89 mg/dL (65-110); Potassium 3.9 mmol/L (3.4-5.0); Sodium 135 mmol/L (137-145)
[2023-01-08 06:10] LABS: Triglycerides > 2625 mg/dL (<150)
[2023-01-08 06:12] LABS: Glucose Point of Care 126 mg/dl (65-105)
[2023-01-08 08:01] LABS: Glucose Point of Care 148 mg/dl (65-105)
[2023-01-08] MEDS: NICOTINE (*PBKC) 14 MG PATCH 1 PATCH TRANSDERM (08:02)
[2023-01-08] MEDS: PANTOPRAZOLE SODIUM IV 40 MG VIAL IV PUSH (08:03)
[2023-01-08] MEDS: ATORVASTATIN 40 MG TABLET 80 MG PO (08:03)
--- NOTE | 2023-01-08 09:18 | WPDINTPN ---
Progress Note: A&P Assessment and Plan (1) Hyperosmolar hyperglycemic state (HHS): Code(s): E11.00 - Type 2 diabetes mellitus with hyperosmolarity without nonketotic hyperglycemic-hyperosmolar coma (NKHHC) Status: Acute Assessment and Plan: Patient appears to have a new onset of diabetes mellitus and presented with elevated blood sugars and dehydration Ketones were negative No objective sign of infection Patient was given IV fluid bolus and started on IV fluid infusion which will be continued IV insulin infusion will be continued for hypertriglyceridemia. Once triglyceride level improves patient will be transitioned to subcutaneous insulin. Serial labs are being done conservation educator and dietitian have been consult P.r.n. Dani A1c 11.2 (2) Hypertriglyceridemia: Code(s): E78.1 - Pure hyperglyceridemia Status: Acute Assessment and Plan: His level still elevated at >2625 Continue IV insulin with IV fluids with dextrose Continue monitoring triglyceride level Continue statin and add niacin Lipase level could not be checked due to high lipemia the blood patient denies any abdominal pain and tolerating p.o. diet now (3) Type 2 diabetes mellitus: Code(s): E11.9 - Type 2 diabetes mellitus without complications Status: Acute Assessment and Plan: See above (4) Right ankle pain: Code(s): M25.571 - Pain in right ankle and joints of right foot Status: Acute Assessment and Plan: P.r.n. hydrocodone (5) Tobacco abuse: Code(s): Z72.0 - Tobacco use Status: Acute Assessment and Plan: Patient was encouraged and counseled to quit smoking. Patient has requested nicotine patch which has been ordered Plan DVT prophylaxis -patient is ambulating Stress ulcer prophylaxis -he is on PPI Nutrition -low-fat diabetic diet Code Status - Full Code Subjective Date/time seen: 01/08/23 09:18 Overnight events reviewed. Afebrile Continues to be on insulin infusion Denies any complaints. Patient denies fever, chest pain, shortness of breath, cough, nausea vomiting, abdominal pain,, diarrhea, headache or constipation.. All other systems were reviewed and were negative Other vitals acceptable Review of Systems Review of Systems: All systems reviewed & are unremarkable except as noted in HPI and below (HPI) Exam Narrative: General: Pt is alert awake and in NAD Lungs/Chest: Trachea central Clear BS B/L, No crackles or wheezing. Cardiac: RRR. Normal S1 S2. No murmurs Circulation: Pedal pulses are intact and symmetrical. Abdomen: Normal bowel sounds.. Soft. NT. ND. Obese Extremities: No clubbing, cyanosis or edema. Warm right ankle is slightly more swollen than left. Patient states that it is chronic : Vivar in place Neurologic: Follows commands. Moves all 4 extremities PERRL Skin: No Rash Objective Data Vital Signs Vital Signs: Vital Signs - 24 hr 01/07/23 10:00 01/07/23 10:00 01/07/23 12:00 Temperature Pulse Rate 84 84 81 Respiratory Rate 18 Blood Pressure 150/90 H Pulse Oximetry 99 Oxygen Delivery 01/07/23 12:00 01/07/23 12:00 01/07/23 14:00 Temperature 37.0 C Pulse Rate 83 70 Respiratory Rate 18 Blood Pressure 154/84 H Pulse Oximetry 99 Oxygen Delivery Room Air 01/07/23 14:00 01/07/23 16:00 01/07/23 16:00 Temperature 36.8 C Pulse Rate 70 85 73 Respiratory Rate 18 20 Blood Pressure 149/71 H 127/72 Pulse Oximetry 99 99 Oxygen Delivery 01/07/23 18:00 01/07/23 16:00 01/07/23 18:00 Temperature Pulse Rate 75 75 Respiratory Rate 18 Blood Pressure 145/70 H Pulse Oximetry 99 Oxygen Delivery Room Air 01/07/23 20:00 01/07/23 20:00 01/07/23 20:00 Temperature 37.0 C Pulse Rate 71 81 80 Respiratory Rate 16 Blood Pressure 132/59 L Pulse Oximetry 96 Oxygen Delivery Room Air 01/07/23 22:00 01/07/23 22:00 01/07/23 23:14 Temperature Pulse Rate 74 7
[2023-01-08 09:29] LABS: Glucose Point of Care 268 mg/dl (65-105)
[2023-01-08] MEDS: INSULIN HUMAN REGULAR (*BKC) 100 UNITS in SODIUM CHLORIDE 0.9% IV 99 ML 30 UNITS IV CONT ×2 (09:48→22:07)
[2023-01-08] MEDS: NIACIN SA 500 MG TABLET PO (10:39)
[2023-01-08 10:41] LABS: Glucose Point of Care 176 mg/dl (65-105)
--- NOTE | 2023-01-08 10:46 | PCFNICU ---
ICU Rounding Note: Pt current nutrition is DBCC/Low Fat. Last recorded weight is 125 kg. Bowel Motility: +BM reported 01/07 Labs Reviewed:Glu 135, ,Na 135 Meds Noted:Lipitor, Protonix Skin: WNL Additional Notes: Patient tolerating DBCC/Low Fat diet. Educated patient today on current diet order. Handouts left and referral made for outpatient DMST and MNT. Thank you for the consult. Following daily in ICU rounds. Will monitor weight, labs, oral intake, skin every 7 days.
[2023-01-08 11:47] LABS: Glucose Point of Care 152 mg/dl (65-105)
[2023-01-08 12:19] LABS: Anion Gap 6 mmol/L (8-16); Blood Urea Nitrogen 10 mg/dL (9-20); Calcium 8.1 mg/dL (8.4-10.2); Carbon Dioxide 19 mmol/L (22-30); Chloride 108 mmol/L (98-107); Estimated CRCL calculation 167 ml/min; Estimated Glomerular Filt Rate > 60; Glucose 137 mg/dL (65-110); Sodium 133 mmol/L (137-145)
[2023-01-08 12:51] LABS: Glucose Point of Care 118 mg/dl (65-105)
[2023-01-08 13:40] LABS: Glucose Point of Care 228 mg/dl (65-105)
[2023-01-08 15:10] LABS: Glucose Point of Care 103 mg/dl (65-105)
[2023-01-08] MEDS: INSULIN HUMAN REGULAR (*BKC) 100 UNITS in SODIUM CHLORIDE 0.9% IV 99 ML 10.88 UNITS IV CONT (16:36)
[2023-01-08 16:49] LABS: Glucose Point of Care 128 mg/dl (65-105)
[2023-01-08 18:05] LABS: Glucose Point of Care 226 mg/dl (65-105)
[2023-01-08 18:53] LABS: Anion Gap 10 mmol/L (8-16); Blood Urea Nitrogen 10 mg/dL (9-20); Calcium 8.1 mg/dL (8.4-10.2); Carbon Dioxide 16 mmol/L (22-30); Chloride 106 mmol/L (98-107); Estimated CRCL calculation 167 ml/min; Estimated Glomerular Filt Rate > 60; Glucose 215 mg/dL (65-110); Potassium 4.1 mmol/L (3.4-5.0); Sodium 132 mmol/L (137-145)
[2023-01-08 19:15] LABS: Glucose Point of Care 186 mg/dl (65-105)
[2023-01-08 20:24] LABS: Glucose Point of Care 148 mg/dl (65-105)
[2023-01-08] MEDS: DIPHENHYDRAMINE 1%/ZINC 0.1% CREAM 30 GM TUBE 1 APPLIC TOPICAL (21:05)
[2023-01-08 21:08] LABS: Glucose Point of Care 163 mg/dl (65-105)
[2023-01-08 22:13] LABS: Glucose Point of Care 263 mg/dl (65-105)
[2023-01-08 23:06] LABS: Glucose Point of Care 182 mg/dl (65-105)
[2023-01-09] VITALS (76 sets, daily range): BP systolic 131–153; BP diastolic 75–127; PULSE 60–98; RESP 9–28; TEMP 36.8–37.2; O2SAT 94–98
[2023-01-09] MEDS: HYDROcodone/acetaminophen (*CRX) 10-325 MG TABLET 1 TAB PO ×5 (00:07→22:11)
[2023-01-09 00:10] LABS: Glucose Point of Care 103 mg/dl (65-105)
[2023-01-09 01:00] LABS: Anion Gap 7 mmol/L (8-16); Blood Urea Nitrogen 11 mg/dL (9-20); Calcium 8.5 mg/dL (8.4-10.2); Carbon Dioxide 16 mmol/L (22-30); Chloride 107 mmol/L (98-107); Estimated CRCL calculation 167 ml/min; Estimated Glomerular Filt Rate > 60; Glucose 75 mg/dL (65-110); Potassium 3.9 mmol/L (3.4-5.0); Sodium 130 mmol/L (137-145)
[2023-01-09 01:05] LABS: Glucose Point of Care 112 mg/dl (65-105)
[2023-01-09] MEDS: INSULIN HUMAN REGULAR (*BKC) 100 UNITS in SODIUM CHLORIDE 0.9% IV 99 ML 30 UNITS IV CONT ×2 (02:10→19:24)
[2023-01-09] MEDS: KCL 20 MEQ/D5/0.45% SOD CHL 1,000 ML 150 ML IV CONT ×2 (02:11→08:07)
[2023-01-09 02:16] LABS: Glucose Point of Care 237 mg/dl (65-105)
[2023-01-09 03:16] LABS: Glucose Point of Care 180 mg/dl (65-105)
[2023-01-09 04:28] LABS: Glucose Point of Care 202 mg/dl (65-105)
[2023-01-09 04:34] LABS: Basophils Percent Auto 0.4 % (0.2-1.2); Eosinophils Absolute Auto 0.1 K/mm3 (0-0.3); Eosinophils Percent Auto 1.5 % (0-4.4); Hematocrit 40.6 % (42.0-52.0); Hemoglobin 14.2 g/dL (14.0-18.0); Immature Granulocyte Absolute 0.07 K/mm3 (0.00-0.031); Immature Granulocyte Percent A 0.9 % (0-0.5); Lymphocytes Absolute Auto 2.58 K/mm3 (0.9-3.2); Mean Corpuscular Hemoglobin 31.6 pg (26-34); Mean Corpuscular Volume 90.4 fl (80-100); Mean Platelet Volume 10.3 fl (7.4-10.4); Monocytes Absolute Auto 0.4 K/mm3 (0.1-0.6); Monocytes Percent Auto 5.5 % (2.6-8.5); Neutrophils Absolute Auto 4.8 K/mm3 (1.3-6.7); Neutrophils Percent Auto 59.7 % (45.5-73.1); Platelet Count Result 186 k/mm3 (150-375); Red Blood Count 4.49 M/mm3 (4.6-6.20); Red Cell Distribution Width 12.4 % (11.5-14.5); White Blood Count 8.1 K/mm3 (4.5-10.0)
[2023-01-09 04:58] LABS: Alanine Aminotransferase 48 U/L (6-50); Albumin Level 3.2 g/dL (3.5-5.1); Alkaline Phosphatase 92 U/L (38-126); Anion Gap 8 mmol/L (8-16); Aspartate Amino Transferase 39 U/L (17-59); Bilirubin,Total 0.3 mg/dL (0.2-1.3); Blood Urea Nitrogen 11 mg/dL (9-20); Calcium 8.3 mg/dL (8.4-10.2); Carbon Dioxide 19 mmol/L (22-30); Chloride 108 mmol/L (98-107); Estimated CRCL calculation 148 ml/min; Estimated Glomerular Filt Rate > 60; Glucose 169 mg/dL (65-110); Potassium 3.6 mmol/L (3.4-5.0); Sodium 135 mmol/L (137-145)
[2023-01-09 05:41] LABS: Triglycerides 2344 mg/dL (<150)
[2023-01-09 05:44] LABS: Glucose Point of Care 94 mg/dl (65-105)
[2023-01-09 06:55] LABS: Glucose Point of Care 96 mg/dl (65-105)
[2023-01-09] MEDS: ATORVASTATIN 40 MG TABLET 80 MG PO ×2 (07:59→08:05)
[2023-01-09] MEDS: POTASSIUM CHLORIDE 20 MEQ ER TABLET 40 MEQ PO (08:04)
[2023-01-09] MEDS: NIACIN SA 500 MG TABLET PO (08:04)
[2023-01-09] MEDS: PANTOPRAZOLE SODIUM IV 40 MG VIAL IV PUSH ×2 (08:05→08:12)
[2023-01-09] MEDS: NICOTINE (*PBKC) 14 MG PATCH 1 PATCH TRANSDERM (08:06)
--- NOTE | 2023-01-09 08:22 | WPDINTPN ---
Progress Note: A&P Assessment and Plan (1) Hypertriglyceridemia: Code(s): E78.1 - Pure hyperglyceridemia Status: Acute Assessment and Plan: His level has improved to 2344 but overall still elevated Continue IV insulin with IV fluids with dextrose Continue monitoring triglyceride level Continue statin and niacin Low-fat diet Lipase level could not be checked due to high lipemia the blood patient denies any abdominal pain and tolerating p.o. diet now (2) Hyperosmolar hyperglycemic state (HHS): Code(s): E11.00 - Type 2 diabetes mellitus with hyperosmolarity without nonketotic hyperglycemic-hyperosmolar coma ([facility]) Status: Acute Assessment and Plan: Patient admitted with diagnosis of new onset of diabetes mellitus and presented with elevated blood sugars and dehydration Ketones were negative No objective sign of infection Patient was given IV fluid bolus and started on IV fluid infusion which will be continued IV insulin infusion will be continued for hypertriglyceridemia. Once triglyceride level improves patient will be transitioned to subcutaneous insulin. Serial labs are being done clinical trial educator and dietitian have seen the patient Patient currently asymptomatic A1c 11.2 (3) Type 2 diabetes mellitus: Code(s): E11.9 - Type 2 diabetes mellitus without complications Status: Acute Assessment and Plan: See above (4) Right ankle pain: Code(s): M25.571 - Pain in right ankle and joints of right foot Status: Acute Assessment and Plan: P.r.n. hydrocodone (5) Tobacco abuse: Code(s): Z72.0 - Tobacco use Status: Acute Assessment and Plan: Patient was encouraged and counseled to quit smoking. Patient has requested nicotine patch which has been ordered Plan DVT prophylaxis -patient is ambulating Stress ulcer prophylaxis -he is on PPI Nutrition -low-fat diabetic diet Code Status - Full Code Subjective Date/time seen: 01/09/23 Overnight events reviewed. Afebrile Feels good and denies any for his complaints. Frustrated by frequent blood draws and would like to be discharged. Review of system is positive for chronic right ankle pain. All other systems were reviewed and were negative Continues to be on insulin infusion Sinus rhythm on the monitor Other vitals acceptable High urine output in response to IV fluids Review of Systems Review of Systems: All systems reviewed & are unremarkable except as noted in HPI and below (HPI) Exam Narrative: General: Pt is alert awake and in NAD Lungs/Chest: Trachea central Clear BS B/L, No crackles or wheezing. Cardiac: RRR. Normal S1 S2. No murmurs Circulation: Pedal pulses are intact and symmetrical. Abdomen: Normal bowel sounds.. Soft. NT. ND. Obese Extremities: No clubbing, cyanosis or edema. Warm right ankle is slightly more swollen than left. Patient states that it is chronic : Vivar in place Neurologic: Follows commands. Moves all 4 extremities PERRL Skin: No Rash Objective Data Vital Signs Vital Signs: Vital Signs - 24 hr 01/08/23 10:00 01/08/23 10:00 01/08/23 12:00 Temperature Pulse Rate 79 79 74 Respiratory Rate 18 Blood Pressure Pulse Oximetry Oxygen Delivery 01/08/23 14:00 01/08/23 12:00 01/08/23 12:00 Temperature Pulse Rate 74 72 72 Respiratory Rate 18 18 Blood Pressure 131/73 Pulse Oximetry 95 95 Oxygen Delivery Room Air 01/08/23 16:00 01/08/23 16:00 01/08/23 16:00 Temperature 36.9 C Pulse Rate 69 74 69 Respiratory Rate 14 14 Blood Pressure 136/87 Pulse Oximetry 96 96 Oxygen Delivery Room Air 01/08/23 18:00 01/08/23 18:00 01/08/23 20:00 Temperature 36.8 C Pulse Rate 82 80 82 Respiratory Rate 18 15 Blood Pressure 145/96 H Pulse Oximetry 96 Oxygen Delivery 01/08/23 20:00 01/08/23 20:00 01/08/23 22:00 Temperature Pulse Rate 82 82 76 Respiratory Rate 15 12 Blood Pressure 132/73
[2023-01-09 08:24] LABS: Glucose Point of Care 137 mg/dl (65-105)
[2023-01-09 09:57] LABS: Glucose Point of Care 264 mg/dl (65-105)
--- NOTE | 2023-01-09 11:18 | PCFNICU ---
ICU Rounding Note: Pt current nutrition is DBCC/Low Fat. Last recorded weight is 124.8 kg. Bowel Motility:+Bm reported 01/09 Labs Reviewed:TG 2344,Glu 169,Na 135 Meds Noted:Protonix, Lipitor, Insulin Skin: WNL Additional Notes: Patient remains on a DBCC/Low Fat diet. Oral Intake 100% of meals. Patient has been educated on current diet order. Agree with diet. No further nutritional interventions needed. Following daily in ICU rounds. Will monitor weight, labs, oral intake, skin every 7 days.
[2023-01-09 12:13] LABS: Anion Gap 6 mmol/L (8-16); Blood Urea Nitrogen 11 mg/dL (9-20); Calcium 8.8 mg/dL (8.4-10.2); Carbon Dioxide 19 mmol/L (22-30); Chloride 107 mmol/L (98-107); Estimated CRCL calculation 167 ml/min; Estimated Glomerular Filt Rate > 60; Glucose 117 mg/dL (65-110); Potassium 4.2 mmol/L (3.4-5.0); Sodium 132 mmol/L (137-145)
[2023-01-09 13:07] LABS: Glucose Point of Care 161 mg/dl (65-105)
[2023-01-09 13:09] LABS: Glucose Point of Care 152 mg/dl (65-105)
[2023-01-09] MEDS: INSULIN HUMAN REGULAR (*BKC) 100 UNITS in SODIUM CHLORIDE 0.9% IV 99 ML 19.3 UNITS IV CONT (13:29)
[2023-01-09] MEDS: KCL 20 MEQ/D5/0.45% SOD CHL 1,000 ML 200 ML IV CONT ×3 (13:29→20:09)
[2023-01-09 15:38] LABS: Glucose Point of Care 109 mg/dl (65-105)
[2023-01-09 15:38] LABS: Glucose Point of Care 90 mg/dl (65-105)
[2023-01-09 16:52] LABS: Glucose Point of Care 122 mg/dl (65-105)
[2023-01-09 18:02] LABS: Glucose Point of Care 225 mg/dl (65-105)
[2023-01-09 18:15] LABS: Anion Gap 4 mmol/L (8-16); Blood Urea Nitrogen 11 mg/dL (9-20); Calcium 8.5 mg/dL (8.4-10.2); Carbon Dioxide 20 mmol/L (22-30); Chloride 106 mmol/L (98-107); Estimated CRCL calculation 148 ml/min; Estimated Glomerular Filt Rate > 60; Glucose 209 mg/dL (65-110); Sodium 130 mmol/L (137-145)
[2023-01-09 21:00] LABS: Glucose Point of Care 176 mg/dl (65-105)
[2023-01-09 21:00] LABS: Glucose Point of Care 228 mg/dl (65-105)
[2023-01-09 21:19] LABS: Glucose Point of Care 113 mg/dl (65-105)
--- NOTE | 2023-01-09 21:21 | PC.NURSE ---
[place] Vape pen found in patient's bed. Patient grabbed it and hid it immediately. When questioned about being in possession of said pen, he denied several times, saying I don't vape, I only smoke cigarettes. Upon further questioning and threatening to involve the clerical warehouse worker, he pulled vape pen from pocket, claiming that his mom left it here and it was hers. Pen placed in patient's possessions in closet. Will continue to monitor.
[2023-01-09 22:11] LABS: Glucose Point of Care 106 mg/dl (65-105)
[2023-01-09] MEDS: INSULIN HUMAN REGULAR (*BKC) 100 UNITS in SODIUM CHLORIDE 0.9% IV 99 ML 27.7 UNITS IV CONT (23:07)
[2023-01-09 23:13] LABS: Glucose Point of Care 192 mg/dl (65-105)
[2023-01-10] VITALS (37 sets, daily range): BP systolic 123–144; BP diastolic 68–96; PULSE 63–99; RESP 12–34; TEMP 36.7–37; O2SAT 95–100; BMI 37.0
[2023-01-10 00:15] LABS: Glucose Point of Care 197 mg/dl (65-105)
[2023-01-10] MEDS: KCL 20 MEQ/D5/0.45% SOD CHL 1,000 ML 200 ML IV CONT ×4 (00:15→16:24)
[2023-01-10 00:59] LABS: Glucose Point of Care 140 mg/dl (65-105)
[2023-01-10 01:09] LABS: Anion Gap 3 mmol/L (8-16); Blood Urea Nitrogen 11 mg/dL (9-20); Calcium 8.5 mg/dL (8.4-10.2); Carbon Dioxide 20 mmol/L (22-30); Chloride 108 mmol/L (98-107); Estimated CRCL calculation 148 ml/min; Estimated Glomerular Filt Rate > 60; Glucose 139 mg/dL (65-110); Potassium 3.9 mmol/L (3.4-5.0); Sodium 131 mmol/L (137-145)
[2023-01-10 02:00] LABS: Glucose Point of Care 200 mg/dl (65-105)
[2023-01-10 02:58] LABS: Glucose Point of Care 189 mg/dl (65-105)
[2023-01-10] MEDS: HYDROcodone/acetaminophen (*CRX) 10-325 MG TABLET 1 TAB PO ×5 (03:03→22:09)
[2023-01-10] MEDS: INSULIN HUMAN REGULAR (*BKC) 100 UNITS in SODIUM CHLORIDE 0.9% IV 99 ML 30 UNITS IV CONT ×2 (03:05→07:51)
[2023-01-10 05:00] LABS: Basophils Absolute Auto 0.1 K/mm3 (0.0-0.1); Basophils Percent Auto 0.7 % (0.2-1.2); Eosinophils Absolute Auto 0.2 K/mm3 (0-0.3); Eosinophils Percent Auto 2.2 % (0-4.4); Immature Granulocyte Absolute 0.08 K/mm3 (0.00-0.031); Immature Granulocyte Percent A 1.1 % (0-0.5); Lymphocytes Percent Auto 34.9 % (18.3-44.2); Mean Corpuscular HGB Conc 33.3 g/dl (32-36); Mean Corpuscular Hemoglobin 31.2 pg (26-34); Mean Corpuscular Volume 93.5 fl (80-100); Mean Platelet Volume 9.9 fl (7.4-10.4); Monocytes Absolute Auto 0.5 K/mm3 (0.1-0.6); Monocytes Percent Auto 7.3 % (2.6-8.5); Neutrophils Absolute Auto 3.9 K/mm3 (1.3-6.7); Neutrophils Percent Auto 53.8 % (45.5-73.1); Platelet Count Result 171 k/mm3 (150-375); Red Blood Count 4.49 M/mm3 (4.6-6.20); Red Cell Distribution Width 12.8 % (11.5-14.5); White Blood Count 7.2 K/mm3 (4.5-10.0)
[2023-01-10 05:16] LABS: Alanine Aminotransferase 63 U/L (6-50); Albumin Level 3.2 g/dL (3.5-5.1); Alkaline Phosphatase 93 U/L (38-126); Anion Gap 4 mmol/L (8-16); Aspartate Amino Transferase 42 U/L (17-59); Bilirubin,Total 0.2 mg/dL (0.2-1.3); Blood Urea Nitrogen 10 mg/dL (9-20); Calcium 8.5 mg/dL (8.4-10.2); Carbon Dioxide 20 mmol/L (22-30); Chloride 109 mmol/L (98-107); Estimated CRCL calculation 167 ml/min; Estimated Glomerular Filt Rate > 60; Glucose 109 mg/dL (65-110); Potassium 3.6 mmol/L (3.4-5.0); Sodium 133 mmol/L (137-145)
[2023-01-10 05:25] LABS: Triglycerides 1503 mg/dL (<150)
[2023-01-10 05:38] LABS: Glucose Point of Care 135 mg/dl (65-105)
[2023-01-10 05:43] LABS: Glucose Point of Care 102 mg/dl (65-105)
[2023-01-10 06:46] LABS: Glucose Point of Care 187 mg/dl (65-105)
[2023-01-10 07:48] LABS: Glucose Point of Care 202 mg/dl (65-105)
--- NOTE | 2023-01-10 08:35 | WPDINTPN ---
Progress Note: A&P Assessment and Plan (1) Hypertriglyceridemia: Code(s): E78.1 - Pure hyperglyceridemia Status: Acute Assessment and Plan: His level has improved to 1503 Continue IV insulin with IV fluids with dextrose Continue monitoring triglyceride level. Recheck level in the evening Continue statin and niacin Low-fat diet Lipase level could not be checked due to high lipemia the blood patient denies any abdominal pain and tolerating p.o. diet now (2) Hyperosmolar hyperglycemic state (HHS): Code(s): E11.00 - Type 2 diabetes mellitus with hyperosmolarity without nonketotic hyperglycemic-hyperosmolar coma ([facility]) Status: Acute Assessment and Plan: Patient admitted with diagnosis of new onset of diabetes mellitus and presented with elevated blood sugars and dehydration Ketones were negative No objective sign of infection Patient was given IV fluid bolus and started on IV fluid infusion which will be continued IV insulin infusion will be continued for hypertriglyceridemia. Once triglyceride level improves patient will be transitioned to subcutaneous insulin. Serial labs are being done changer fixer and dietitian have seen the patient Patient currently asymptomatic A1c 11.2 (3) Type 2 diabetes mellitus: Code(s): E11.9 - Type 2 diabetes mellitus without complications Status: Acute Assessment and Plan: See above (4) Right ankle pain: Code(s): M25.571 - Pain in right ankle and joints of right foot Status: Acute Assessment and Plan: P.r.n. hydrocodone (5) Tobacco abuse: Code(s): Z72.0 - Tobacco use Status: Acute Assessment and Plan: Patient was encouraged and counseled to quit smoking. Patient has requested nicotine patch which has been ordered (6) Electrolyte abnormality: Code(s): E87.8 - Other disorders of electrolyte and fluid balance, not elsewhere classified Status: Acute Assessment and Plan: Replace low potassium Plan DVT prophylaxis -patient is ambulating Stress ulcer prophylaxis -he is on PPI Nutrition -low-fat diabetic diet Code Status - Full Code Subjective Date/time seen: 01/10/23 Overnight events reviewed. Afebrile Good urine output Continues to be on insulin infusion Tolerating p.o. diet No complaints. Patient denies fever, chest pain, shortness of breath, cough, nausea vomiting, abdominal pain,, diarrhea, headache or constipation.. All other systems were reviewed and were negative Other vitals acceptable Review of Systems Review of Systems: All systems reviewed & are unremarkable except as noted in HPI and below (Subjective) Exam Narrative: General: Pt is alert awake and in NAD Lungs/Chest: Trachea central Clear BS B/L, No crackles or wheezing. Cardiac: RRR. Normal S1 S2. No murmurs Circulation: Pedal pulses are intact and symmetrical. Abdomen: Normal bowel sounds.. Soft. NT. ND. Obese Extremities: No clubbing, cyanosis or edema. Warm right ankle is slightly more swollen than left. Patient states that it is chronic : Vivar in place Neurologic: Follows commands. Moves all 4 extremities PERRL Skin: No Rash Objective Data Vital Signs Vital Signs: Vital Signs - 24 hr 01/09/23 08:55 01/09/23 10:01 01/09/23 10:51 Temperature Pulse Rate 76 75 84 Respiratory Rate 15 Blood Pressure Pulse Oximetry Oxygen Delivery 01/09/23 12:17 01/09/23 12:30 01/09/23 12:43 Temperature Pulse Rate 77 78 94 Respiratory Rate 18 18 26 H Blood Pressure 153/89 H Pulse Oximetry Oxygen Delivery 01/09/23 12:45 01/09/23 12:00 01/09/23 10:00 Temperature Pulse Rate 94 81 75 Respiratory Rate 16 21 H Blood Pressure Pulse Oximetry 94 Oxygen Delivery Room Air 01/09/23 13:00 01/09/23 13:01 01/09/23 13:15 Temperature Pulse Rate 72 76 79 Respiratory Rate 16 15 18 Blood Pressure 153/89 H Pulse Oximetry Oxygen Delivery 08
[2023-01-10] MEDS: NIACIN SA 500 MG TABLET PO (08:36)
[2023-01-10] MEDS: NICOTINE (*PBKC) 14 MG PATCH 1 PATCH TRANSDERM (08:36)
[2023-01-10] MEDS: ATORVASTATIN 40 MG TABLET 80 MG PO (08:36)
[2023-01-10 08:44] LABS: Glucose Point of Care 148 mg/dl (65-105)
[2023-01-10] MEDS: POTASSIUM BICARBONATE 25 MEQ TABEF 50 MEQ PO (09:19)
[2023-01-10 09:45] LABS: Glucose Point of Care 83 mg/dl (65-105)
[2023-01-10 10:48] LABS: Glucose Point of Care 241 mg/dl (65-105)
[2023-01-10 11:30] LABS: Glucose Point of Care 300 mg/dl (65-105)
--- NOTE | 2023-01-10 12:06 | PCFNICU ---
ICU Rounding Note: Pt current nutrition is DBCC/Low Fat. Last recorded weight is 134.4 kg. Bowel Motility: +Bm reported 01/09 Labs Reviewed:TG 1503,Na 133 Meds Noted:Lipitor, Protonix, Insulin Human Regular Skin: WNL Additional Notes: Patient is consuming 100% of diabetic diet. Agree wit diet orders. Following daily in ICU rounds. Will monitor weight, labs, oral intake, skin every 7 days.
[2023-01-10 12:37] LABS: Anion Gap 10 mmol/L (8-16); Blood Urea Nitrogen 11 mg/dL (9-20); Calcium 8.6 mg/dL (8.4-10.2); Carbon Dioxide 21 mmol/L (22-30); Chloride 102 mmol/L (98-107); Estimated CRCL calculation 153 ml/min; Estimated Glomerular Filt Rate > 60; Glucose 298 mg/dL (65-110); Potassium 4.9 mmol/L (3.4-5.0); Sodium 133 mmol/L (137-145)
[2023-01-10 12:56] LABS: Glucose Point of Care 293 mg/dl (65-105)
[2023-01-10 13:54] LABS: Glucose Point of Care 324 mg/dl (65-105)
[2023-01-10] MEDS: INSULIN HUMAN REGULAR (*BKC) 100 UNITS in SODIUM CHLORIDE 0.9% IV 99 ML 12.42 UNITS IV CONT (15:15)
[2023-01-10 15:24] LABS: Glucose Point of Care 267 mg/dl (65-105)
[2023-01-10 16:21] LABS: Glucose Point of Care 222 mg/dl (65-105)
[2023-01-10 18:26] LABS: Anion Gap 5 mmol/L (8-16); Blood Urea Nitrogen 12 mg/dL (9-20); Calcium 8.9 mg/dL (8.4-10.2); Carbon Dioxide 22 mmol/L (22-30); Chloride 104 mmol/L (98-107); Estimated CRCL calculation 153 ml/min; Estimated Glomerular Filt Rate > 60; Glucose 141 mg/dL (65-110); Potassium 4.3 mmol/L (3.4-5.0); Sodium 131 mmol/L (137-145)
[2023-01-10 18:28] LABS: Glucose Point of Care 236 mg/dl (65-105)
[2023-01-10 18:50] LABS: Triglycerides 1351 mg/dL (<150)
[2023-01-10 19:15] LABS: Glucose Point of Care 233 mg/dl (65-105)
[2023-01-10 19:15] LABS: Glucose Point of Care 219 mg/dl (65-105)
[2023-01-10 20:32] LABS: Glucose Point of Care 198 mg/dl (65-105)
[2023-01-10 21:21] LABS: Glucose Point of Care 217 mg/dl (65-105)
[2023-01-10] MEDS: KCL 20 MEQ/D5/0.45% SOD CHL 1,000 ML 150 ML IV CONT (21:25)
[2023-01-10] MEDS: INSULIN HUMAN REGULAR (*BKC) 100 UNITS in SODIUM CHLORIDE 0.9% IV 99 ML 12.8 UNITS IV CONT (22:07)
[2023-01-10 22:16] LABS: Glucose Point of Care 202 mg/dl (65-105)
[2023-01-10 23:20] LABS: Glucose Point of Care 171 mg/dl (65-105)
[2023-01-11] VITALS (9 sets, daily range): BP systolic 112–141; BP diastolic 67–86; PULSE 70–97; RESP 13–18; TEMP 35.7–36.8; O2SAT 95–99
[2023-01-11 00:30] LABS: Glucose Point of Care 182 mg/dl (65-105)
[2023-01-11 01:06] LABS: Anion Gap 4 mmol/L (8-16); Blood Urea Nitrogen 13 mg/dL (9-20); Calcium 8.8 mg/dL (8.4-10.2); Carbon Dioxide 23 mmol/L (22-30); Chloride 104 mmol/L (98-107); Estimated CRCL calculation 173 ml/min; Estimated Glomerular Filt Rate > 60; Glucose 158 mg/dL (65-110); Sodium 131 mmol/L (137-145)
[2023-01-11 01:18] LABS: Glucose Point of Care 186 mg/dl (65-105)
[2023-01-11] MEDS: HYDROcodone/acetaminophen (*CRX) 10-325 MG TABLET 1 TAB PO ×5 (02:12→20:41)
[2023-01-11 02:19] LABS: Glucose Point of Care 198 mg/dl (65-105)
[2023-01-11 03:39] LABS: Glucose Point of Care 200 mg/dl (65-105)
[2023-01-11] MEDS: KCL 20 MEQ/D5/0.45% SOD CHL 1,000 ML 150 ML IV CONT (04:38)
[2023-01-11 04:52] LABS: Glucose Point of Care 216 mg/dl (65-105)
[2023-01-11] MEDS: INSULIN HUMAN REGULAR (*BKC) 100 UNITS in SODIUM CHLORIDE 0.9% IV 99 ML 23.1 UNITS IV CONT (06:13)
[2023-01-11 06:22] LABS: Glucose Point of Care 214 mg/dl (65-105)
[2023-01-11 06:33] LABS: Basophils Percent Auto 0.6 % (0.2-1.2); Eosinophils Absolute Auto 0.2 K/mm3 (0-0.3); Eosinophils Percent Auto 2.2 % (0-4.4); Hematocrit 40.6 % (42.0-52.0); Hemoglobin 13.9 g/dL (14.0-18.0); Immature Granulocyte Percent A 1.4 % (0-0.5); Lymphocytes Absolute Auto 2.43 K/mm3 (0.9-3.2); Lymphocytes Percent Auto 33.6 % (18.3-44.2); Mean Corpuscular HGB Conc 34.2 g/dl (32-36); Mean Corpuscular Hemoglobin 31.6 pg (26-34); Mean Corpuscular Volume 92.3 fl (80-100); Mean Platelet Volume 10.1 fl (7.4-10.4); Monocytes Absolute Auto 0.5 K/mm3 (0.1-0.6); Monocytes Percent Auto 6.6 % (2.6-8.5); Neutrophils Percent Auto 55.6 % (45.5-73.1); Platelet Count Result 175 k/mm3 (150-375); Red Cell Distribution Width 12.5 % (11.5-14.5); White Blood Count 7.2 K/mm3 (4.5-10.0)
[2023-01-11 06:42] LABS: Alanine Aminotransferase 74 U/L (6-50); Albumin Level 3.4 g/dL (3.5-5.1); Alkaline Phosphatase 98 U/L (38-126); Anion Gap 3 mmol/L (8-16); Aspartate Amino Transferase 42 U/L (17-59); Bilirubin,Total 0.3 mg/dL (0.2-1.3); Blood Urea Nitrogen 13 mg/dL (9-20); Calcium 8.5 mg/dL (8.4-10.2); Carbon Dioxide 25 mmol/L (22-30); Chloride 104 mmol/L (98-107); Estimated CRCL calculation 153 ml/min; Estimated Glomerular Filt Rate > 60; Glucose 166 mg/dL (65-110); Sodium 132 mmol/L (137-145)
[2023-01-11] MEDS: INSULIN HUMAN REGULAR (*BKC) 100 UNITS in SODIUM CHLORIDE 0.9% IV 99 ML 21.1 UNITS IV CONT (07:00)
[2023-01-11 07:02] LABS: Glucose Point of Care 192 mg/dl (65-105)
[2023-01-11 08:10] LABS: Glucose Point of Care 98 mg/dl (65-105)
[2023-01-11] MEDS: PANTOPRAZOLE SODIUM IV 40 MG VIAL IV PUSH (08:26)
[2023-01-11] MEDS: NIACIN SA 500 MG TABLET PO (08:28)
[2023-01-11] MEDS: NICOTINE (*PBKC) 14 MG PATCH 1 PATCH TRANSDERM (08:28)
[2023-01-11 08:34] LABS: Triglycerides 1255 mg/dL (<150)
[2023-01-11] MEDS: ATORVASTATIN 40 MG TABLET 80 MG PO (09:06)
[2023-01-11] MEDS: INSULIN GLARGINE (*BKC) 100 UNITS/ML 40 UNITS SUB-Q (09:07)
--- NOTE | 2023-01-11 09:11 | WPDINTPN ---
Progress Note: A&P Assessment and Plan (1) Hypertriglyceridemia: Code(s): E78.1 - Pure hyperglyceridemia Status: Acute Assessment and Plan: His level has improved to 1255 Will discontinue iV insulin with IV fluids with dextrose and transition him to subcutaneous insulin Continue monitoring triglyceride level while in the hospital Continue statin and niacin Low-fat diet On presentation lipase level could not be checked due to high lipemia the blood patient denies any abdominal pain and tolerating p.o. diet now (2) Hyperosmolar hyperglycemic state (HHS): Code(s): E11.00 - Type 2 diabetes mellitus with hyperosmolarity without nonketotic hyperglycemic-hyperosmolar coma ([facility]) Status: Acute Assessment and Plan: Patient admitted with diagnosis of new onset of diabetes mellitus and presented with elevated blood sugars and dehydration Ketones were negative No objective sign of infection Patient was given IV fluid bolus and started on IV fluid infusion which will be now be transition to subcutaneous insulin Add metformin simulation educator and dietitian have seen the patient Patient currently asymptomatic A1c 11.2 (3) Type 2 diabetes mellitus: Code(s): E11.9 - Type 2 diabetes mellitus without complications Status: Acute Assessment and Plan: See above (4) Right ankle pain: Code(s): M25.571 - Pain in right ankle and joints of right foot Status: Acute Assessment and Plan: P.r.n. hydrocodone (5) Tobacco abuse: Code(s): Z72.0 - Tobacco use Status: Acute Assessment and Plan: Patient was encouraged and counseled to quit smoking. Patient has requested nicotine patch which has been ordered (6) Electrolyte abnormality: Code(s): E87.8 - Other disorders of electrolyte and fluid balance, not elsewhere classified Status: Acute Assessment and Plan: Patient has been receiving potassium replaced (7) Ulnar nerve entrapment at elbow: Code(s): G56.20 - Lesion of ulnar nerve, unspecified upper limb Status: Acute Assessment and Plan: Neurology consulted Plan DVT prophylaxis -patient is ambulating Stress ulcer prophylaxis -he is on PPI Nutrition -low-fat diabetic diet Code Status - Full Code Transfer out of ICU today Subjective Date/time seen: 01/11/23 Overnight events reviewed. Afebrile Denies any complaints and feels good and would like to be discharged if possible. Patient denies fever, chest pain, shortness of breath, cough, nausea vomiting, abdominal pain,, diarrhea, headache or constipation. Patient today mentions that he has had numbing of medial aspect of his left hand for last 2 months. He states that he does not have complete loss of sensation but has altered sensation on the medial aspect of his right lower all and hand. He does not feel weak. All the systems were reviewed and were negative Continues to be on insulin infusion and IV fluids Review of Systems Review of Systems: All systems reviewed & are unremarkable except as noted in HPI and below (Subjective) Exam Narrative: General: Pt is alert awake and in NAD Lungs/Chest: Trachea central Clear BS B/L, No crackles or wheezing. Cardiac: RRR. Normal S1 S2. No murmurs Circulation: Pedal pulses are intact and symmetrical. Abdomen: Normal bowel sounds.. Soft. NT. ND. Obese Extremities: No clubbing, cyanosis or edema. Warm right ankle is slightly more swollen than left. Patient states that it is chronic : Vivar in place Neurologic: Follows commands. Moves all 4 extremities PERRL medial aspect of right hand and forearm patient has altered sensation although he can feel the touch and appears to have normal strength Skin: No Rash Objective Data Vital Signs Vital Signs: Vital Signs - 24 hr 01/10/23 09:37 01/10/23 10:13 01/10/23 10:00 Temperature Pulse Rate 92 82 78 Respiratory Rate 18 Blood Pressure Pulse Oximetry Ox
[2023-01-11] MEDS: INSULIN ASPART (*BKC) 100 UNITS/ML 8 UNITS SUB-Q ×2 (11:38→18:08)
--- NOTE | 2023-01-11 11:39 | PM.IMPN ---
Progress Note: A&P Assessment and Plan (1) Hypertriglyceridemia: Code(s): E78.1 - Pure hyperglyceridemia Status: Acute Assessment and Plan: His level has improved to 1255 Will discontinue iV insulin with IV fluids with dextrose and transition him to subcutaneous insulin Continue monitoring triglyceride level while in the hospital Continue statin and niacin Low-fat diet p.o. diet now (2) Hyperosmolar hyperglycemic state (HHS): Code(s): E11.00 - Type 2 diabetes mellitus with hyperosmolarity without nonketotic hyperglycemic-hyperosmolar coma ([facility]) Status: Acute Assessment and Plan: Patient admitted with diagnosis of new onset of diabetes mellitus and presented with elevated blood sugars and dehydration Ketones were negative No objective sign of infection Patient was given IV fluid bolus and started on IV fluid infusion which will be now be transition to subcutaneous insulin Add metformin family living educator and dietitian have seen the patient Patient currently asymptomatic A1c 11.2 (3) Type 2 diabetes mellitus: Code(s): E11.9 - Type 2 diabetes mellitus without complications Status: Acute Assessment and Plan: See above (4) Right ankle pain: Code(s): M25.571 - Pain in right ankle and joints of right foot Status: Acute Assessment and Plan: P.r.n. hydrocodone (5) Tobacco abuse: Code(s): Z72.0 - Tobacco use Status: Acute Assessment and Plan: Patient was encouraged and counseled to quit smoking. Patient has requested nicotine patch which has been ordered (6) Ulnar nerve entrapment at elbow: Code(s): G56.20 - Lesion of ulnar nerve, unspecified upper limb Status: Acute Assessment and Plan: Neurology consulted Subjective Date/time seen: 01/11/23 11:39 Interval history: Asymptomatic Review of Systems Review of Systems: All systems reviewed & are unremarkable except as noted in HPI and below (Subjective) Exam Narrative: General: Pt is alert awake and in NAD Lungs/Chest: Trachea central Clear BS B/L, No crackles or wheezing. Cardiac: RRR. Normal S1 S2. No murmurs Circulation: Pedal pulses are intact and symmetrical. Abdomen: Normal bowel sounds.. Soft. NT. ND. Obese Extremities: No clubbing, cyanosis or edema. Warm right ankle is slightly more swollen than left. Patient states that it is chronic : Vivar in place Neurologic: Follows commands. Moves all 4 extremities PERRL medial aspect of right hand and forearm patient has altered sensation although he can feel the touch and appears to have normal strength Skin: No Rash Objective Data Vital Signs Vital Signs: Vital Signs - 24 hr 01/10/23 12:00 01/10/23 12:00 01/10/23 11:54 Temperature 98.4 F Pulse Rate 95 Respiratory Rate 16 34 H Blood Pressure Pulse Oximetry 100 Oxygen Delivery Room Air 01/10/23 12:16 01/10/23 12:56 01/10/23 13:43 Temperature Pulse Rate 86 79 80 Respiratory Rate 17 25 H 18 Blood Pressure Pulse Oximetry Oxygen Delivery 01/10/23 14:00 01/10/23 14:00 01/10/23 18:00 Temperature 98.0 F 98.2 F Pulse Rate 80 Respiratory Rate Blood Pressure Pulse Oximetry Oxygen Delivery 01/10/23 16:00 01/10/23 18:00 01/10/23 20:00 Temperature Pulse Rate 90 93 Respiratory Rate 18 Blood Pressure Pulse Oximetry 100 Oxygen Delivery Room Air Room Air 01/10/23 20:00 01/10/23 22:00 01/11/23 00:00 Temperature 98.2 F 98.3 F Pulse Rate 87 81 74 Respiratory Rate 21 H 17 15 Blood Pressure 143/96 H 144/90 H 138/81 Pulse Oximetry 95 99 96 Oxygen Delivery 01/11/23 00:00 01/10/23 20:00 01/10/23 22:00 Temperature Pulse Rate 99 81 Respiratory Rate Blood Pressure Pulse Oximetry Oxygen Delivery Room Air 01/11/23 00:00 01/11/23 02:00 01/11/23 02:37 Temperature Pulse Rate 70 79 79 Respiratory Rate 15 Blood Pressure 141/86 H Pulse Oximetry
[2023-01-11] MEDS: INSULIN ASPART (*BKC) 100 UNITS/ML SUB-Q ×2 (11:40→20:40)
[2023-01-11 12:01] LABS: Glucose Point of Care 243 mg/dl (65-105)
--- NOTE | 2023-01-11 12:06 | WPDNEURCNPN ---
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 - Discussed with patient that he will need EMG/NCS done as outpatient and then referral to hand surgeon Consult date: 01/11/23 Reason for consult: R hand weakness HPI: Shyam Joel is a 42 year old male with a history of newly diagnosed diabetes and hypertriglyceridemia who presented initially due to polydypsia, polyuria, was found to be non-ketotic hyperosmolar hyperglyceminia. Patient reports that for the past two months, he has had decreased sensation in the medial aspect of his right hand and wrist, and has also had weakness in that hand. 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 He denies any symptoms in his left upper extremities or the lower extremities. He reports that he had an EMG/NCS many years ago due to weak lan manager strength in his hands, but did not tolerate the test, so he never received a diagnosis. He reports that his went to a chiropractor who treated him at that time, and his lan manager strength became normal afterwards. Review of Systems Constitutional: Constitutional: Denies chills, Denies fever(s) and Denies weight loss Eyes: Eyes: Denies diplopia and Denies loss of vision ENT: Denies dizziness, Denies hearing loss and Denies tinnitus Cardiovascular: Cardiovascular: Denies chest pain, Denies syncope and Denies dyspnea Respiratory: Respiratory: Denies cough, Denies dyspnea and Denies wheezing Gastrointestinal: Gastrointestinal: Denies abdominal pain, Denies change in bowel habits and Denies vomiting Genitourinary: Genitourinary: Denies urinary incontinence Musculoskeletal: Musculoskeletal: Denies arthralgias and Denies joint swelling Integumentary/Breasts: Skin/Breast: Denies new lesions and Denies rash Neurologic: Reports as per HPI, Denies dizziness, Denies syncope and Denies loss of vision Psychiatric: Psychiatric: Denies anxiety and Denies depression Endocrine: Endocrine: Denies cold intolerance and Denies heat intolerance Hematologic/Lymphatic: Hematologic/Lymphatic: Denies easy bleeding and Denies easy bruising Allergic/Immunologic: Allergic/Immunologic: Denies no additional allergic/immunologic complaints and Denies wheezing PMFSH Family History Family History Father Asthma History of ETOH abuse Sibling History of ETOH abuse Grandparent Cancer Other Family history of mental disorder Social History Social History Smoking packs per day: 0.75 Smoking cigarettes per day: 15.0 Years smoked: 28 Smoking pack-years: 21.00 Smoking status: Current every day smoker Tobacco type: cigarettes Alcohol intake: never Alcohol use details: occasionally Substance use: never Substance use type: does not use Lack of Transportation: No Lack of Food: Never True Current Housing: I Have Housing Concerned About Future Housing: No Difficulty Paying Gas/Electric Bills: No Difficulty Paying for Meds: No Currently Unemployed: No Education: Decline to Answer Difficulty w/ Childcare or Family Care: No Living arrangements: alone Occupation/Education: occupation Additional occupation/education comments:
--- NOTE | 2023-01-11 13:05 | PC.NURSE ---
pt transferred into room 303, was able to ambulated from ICU to room, doing well, denies pain or discomfort, reviewed plan of care
--- NOTE | 2023-01-11 13:11 | PC.NURSE ---
This patient, Shyam Joel, was transferred to [facility] on 01/11/23 at 1300. Personal belongings sent with patient. Report given to Patricia. Appropriate documentation sent with patient.
[2023-01-11 16:30] LABS: Glucose Point of Care 160 mg/dl (65-105)
[2023-01-11 20:45] LABS: Glucose Point of Care 267 mg/dl (65-105)
[2023-01-12] MEDS: HYDROcodone/acetaminophen (*CRX) 10-325 MG TABLET 1 TAB PO ×2 (05:42→10:14)
[2023-01-12 05:45] VITALS: BP 113/80; PULSE 76; RESP 18; TEMP 35.5; O2SAT 96
[2023-01-12 06:36] LABS: Hematocrit 43.9 % (42.0-52.0); Hemoglobin 14.4 g/dL (14.0-18.0); Mean Corpuscular HGB Conc 32.8 g/dl (32-36); Mean Corpuscular Hemoglobin 31.4 pg (26-34); Mean Corpuscular Volume 95.9 fl (80-100); Platelet Count Result 184 k/mm3 (150-375); Red Blood Count 4.58 M/mm3 (4.6-6.20); Red Cell Distribution Width 12.7 % (11.5-14.5); White Blood Count 7.4 K/mm3 (4.5-10.0)
[2023-01-12 06:51] LABS: Anion Gap 4 mmol/L (8-16); Blood Urea Nitrogen 16 mg/dL (9-20); Calcium 9.1 mg/dL (8.4-10.2); Carbon Dioxide 29 mmol/L (22-30); Chloride 101 mmol/L (98-107); Estimated CRCL calculation 136 ml/min; Estimated Glomerular Filt Rate > 60; Glucose 165 mg/dL (65-110); Potassium 4.4 mmol/L (3.4-5.0); Sodium 134 mmol/L (137-145)
[2023-01-12 07:15] LABS: Triglycerides 998 mg/dL (<150)
[2023-01-12 07:53] LABS: Glucose Point of Care 192 mg/dl (65-105)
[2023-01-12] MEDS: INSULIN GLARGINE (*BKC) 100 UNITS/ML 40 UNITS SUB-Q (10:01)
[2023-01-12] MEDS: INSULIN ASPART (*BKC) 100 UNITS/ML 8 UNITS SUB-Q (10:03)
[2023-01-12] MEDS: ATORVASTATIN 40 MG TABLET 80 MG PO (10:05)
[2023-01-12] MEDS: NICOTINE (*PBKC) 14 MG PATCH 1 PATCH TRANSDERM (10:06)
[2023-01-12] MEDS: NIACIN SA 500 MG TABLET PO (10:06)
--- NOTE | 2023-01-12 11:25 | PM.DS ---
DS: Admitting Diagnosis Discharge Date 01/12/2023 Admitting Diagnosis Polyuria Polydipsia Hyper glycemia DS: Discharge Diagnosis Discharge Diagnosis (1) Hyperosmolar hyperglycemic state (HHS): Code(s): E11.00 - Type 2 diabetes mellitus with hyperosmolarity without nonketotic hyperglycemic-hyperosmolar coma (NKHHC) Status: Acute (2) Diabetes mellitus, new onset: Code(s): E11.9 - Type 2 diabetes mellitus without complications Status: Acute (3) Tobacco abuse: Code(s): Z72.0 - Tobacco use Status: Acute (4) Ulnar nerve entrapment at elbow: Code(s): G56.20 - Lesion of ulnar nerve, unspecified upper limb Status: Acute DS: Summary Hospital Course Hospital Course: 42-year-old obese male was admitted with hyperglycemia. Sugars were in the 600s. Patient reported polyuria and polydipsia for many days. He was found to have new onset diabetes mellitus and was started on IV insulin. Once the sugars improved he was put on subcutaneous insulin. He was also found to have a hyper triglycerides. Her triglyceride levels have been trending down. This seems to be the likely cause of his new onset diabetes mellitus. Patient was started on statin and niacin. At this time sugars are improved and patient is being discharged home with insulin basal bolus regimen along with metformin XL. Patient advised to follow-up with PCP as well as an [facility] for his diabetes management. During his admission patient was also found to have right wrist pain and was found to have ulnar nerve entrapment. Neurology was consulted and they recommended outpatient follow-up with them. Patient counseled on lifestyle modification and smoking cessation. Needs to be on a low-fat low-cholesterol and diabetic diet Time Spent with Patient Time attestation: Total time spent providing and/or coordinating discharge services: DS: Data Data Completed and Pending Labs on day of discharge: Labs from last 24 hours 01/12/23 01/12/23 01/11/23 07:23 05:47 20:04 WBC 7.4 RBC 4.58 L Hgb 14.4 Hct 43.9 MCV 95.9 MCH 31.4 MCHC 32.8 RDW 12.7 Plt Count 184 MPV 10.0 Sodium 134 L Potassium 4.4 Chloride 101 Carbon Dioxide 29 Anion Gap 4 L BUN 16 Creatinine 0.90 Estim Creat Clear Calc 136 Estimated GFR > 60 Glucose 165 H POC Capillary Glucose 192 H 267 H Calcium 9.1 Triglycerides 998 H 01/11/23 01/11/23 16:26 11:36 WBC RBC Hgb Hct MCV MCH MCHC RDW Plt Count MPV Sodium Potassium Chloride Carbon Dioxide Anion Gap BUN Creatinine Estim Creat Clear Calc Estimated GFR Glucose POC Capillary Glucose 160 H 243 H Calcium Triglycerides Discharge Plan Discharge Consulting providers: Reginaldo Ellington; Heavenly Saavedra Discharging Clinician: Navi Souza Anticipated Discharge Date/Time: 01/12/23 11:21 Patient Disposition: Home, Self-Care Activity: no preference Diet: heart healthy and diabetic Patient Instructions: Antibiotic Form, How to Stop Smoking (DC), Basic Carbohydrate Counting (DC) Stand Alone Forms: General Discharge Information Follow-up/Referrals: Soto Ahuja MD [Primary Care Provider] - Heavenly Saavedra MD [Physician] - Discharge Medications: New nicotine [Nicoderm CQ] 14 mg/24 hr patch 24 hour 1 patch transdermal DAILY Qty: 28 0RF insulin aspart U-100 [Novolog U-100 Insulin aspart] 100 unit/mL Solution 13 unit subcut TIDWM Qty: 10 0RF metformin 500 mg tablet extended release 24 hr 500 mg PO DAILY Qty: 30 0RF atorvastatin 40 mg Tablet 80 mg PO HS Qty: 30 0RF niacin 500 mg Tablet Extended Release 500 mg PO QAM Qty: 30 0RF insulin glargine [Lantus U-100 Insulin] 100 unit/mL Solution 40 unit subcut QAM Qty: 10 0RF Continued hydrocodone-acetaminophen 10-325 mg tablet 1 tablet PO Q6H PRN (Reason: pain)
[2023-01-12 11:54] LABS: Glucose Point of Care 288 mg/dl (65-105)
[2023-01-12] MEDS: INSULIN ASPART (*BKC) 100 UNITS/ML 13 UNITS SUB-Q (12:44)
[2023-01-12 14:15] VITALS: BP 130/79; PULSE 89; RESP 20; TEMP 35.9; O2SAT 98
== END 2023-01-12 14:35 | disposition home or self-care (01) | DRG 639 ==
LOC: ANHED 01-07 02:43 → ANHICU 01-07 03:01 → ANH3MEDSUR 01-11 13:26
PROVIDERS: Internal Medicine; Student in an Organized Health Care Education/Training Program; Admitting Provider Internal Medicine; Emergency Provider Emergency Medicine; PCP Family Medicine; Visit Provider Hospitalist
DX: E11.00 Type 2 diabetes mellitus with hyperosmolarity without nonketotic hyperglycemic-hyperosmolar coma (NKHHC) (principal); E66.9 Obesity, unspecified; E87.8 Other disorders of electrolyte and fluid balance, not elsewhere classified; E78.1 Pure hyperglyceridemia; E78.5 Hyperlipidemia, unspecified; E86.0 Dehydration; F17.210 Nicotine dependence, cigarettes, uncomplicated; G56.21 Lesion of ulnar nerve, right upper limb; M25.571 Pain in right ankle and joints of right foot; Z79.891 Long term (current) use of opiate analgesic; Z68.34 Body mass index [BMI] 34.0-34.9, adult
CPT/HCPCS: 36415; 80048; 80053; 80061; 82010; 82948; 83036; 83690; 83735; 84100; 84478; 85025; 85027; 96361; 96365; 96366; 96375; 96376; 99285; A9270; C9113; G0378; J1815; J3480; J7030

== ENCOUNTER 2023-01-14 10:21 | Outpatient (CLI) | payer BC, SELFPAY ==
[2023-01-14 18:52] LABS: Anion Gap 7 mmol/L (8-16); Blood Urea Nitrogen 18 mg/dL (9-20); Calcium 9.5 mg/dL (8.4-10.2); Carbon Dioxide 26 mmol/L (22-30); Chloride 104 mmol/L (98-107); Estimated Glomerular Filt Rate > 60; Glucose 140 mg/dL (65-110); Potassium 4.4 mmol/L (3.4-5.0); Sodium 137 mmol/L (137-145)
== END 2023-01-14 10:22 | disposition home or self-care (01) ==
PROVIDERS: PCP Nurse Practitioner Adult Health; Visit Provider Nurse Practitioner Adult Health
DX: E11.00 Type 2 diabetes mellitus with hyperosmolarity without nonketotic hyperglycemic-hyperosmolar coma (NKHHC) (principal)
CPT/HCPCS: 36415; 80048

== ENCOUNTER 2023-04-18 08:38 | Outpatient (CLI) | payer BC, SELFPAY ==
[2023-04-18 18:44] LABS: Alanine Aminotransferase 33 U/L (6-50); Albumin Level 4.4 g/dL (3.5-5.1); Alkaline Phosphatase 73 U/L (38-126); Anion Gap 11 mmol/L (8-16); Aspartate Amino Transferase 49 U/L (17-59); Bilirubin,Total 0.6 mg/dL (0.2-1.3); Blood Urea Nitrogen 21 mg/dL (9-20); Calcium 9.4 mg/dL (8.4-10.2); Carbon Dioxide 21 mmol/L (22-30); Chloride 108 mmol/L (98-107); Cholesterol 185 mg/dL (0-200); Estimated Glomerular Filt Rate > 60; Glucose 132 mg/dL (65-110); HDL Direct 31 mg/dL; Potassium 4.1 mmol/L (3.4-5.0); Sodium 140 mmol/L (137-145); Triglycerides 347 mg/dL (<150)
[2023-04-18 18:56] LABS: LDL Cholesterol Direct 90 mg/dL
[2023-04-18 19:13] LABS: Hemoglobin A1C 6.7 % (<5.7)
== END 2023-04-18 08:39 | disposition home or self-care (01) ==
LOC: ANHBWCLAB 08:40
PROVIDERS: PCP Nurse Practitioner Adult Health; Visit Provider Nurse Practitioner Adult Health
DX: E11.9 Type 2 diabetes mellitus without complications (principal)
CPT/HCPCS: 36415; 80053; 80061; 83036

== ENCOUNTER 2023-04-25 17:39 | Emergency (ER) | payer BC, SELFPAY ==
[2023-04-25 17:39] VITALS: BP 139/90; PULSE 70; RESP 18; TEMP 36.5; O2SAT 98
--- NOTE | 2023-04-25 17:50 | ED.URI ---
HPI - URI/Sore Throat General Chief Complaint: Upper Respiratory Infection Stated Complaint: sinus infection Time Seen by Provider: 04/25/23 17:50 Source: patient Mode of arrival: ambulatory Limitations: no limitations History of Present Illness HPI Narrative: Jhon is a 42-year-old male patient presenting to the clinic today with complaints of a possible sinus infection x2 weeks. He reports sinus pressure, congestion, and green nasal drainage. He denies any fever or chills. MD elicited complaint: sore throat and nasal congestion Related Data Allergies Allergy/AdvReac Type Severity Reaction Status Date / Time No Known Allergies Allergy Verified 04/25/23 17:47 Review of Systems Review of Systems: Pertinent positives per HPI. Patient denies any fever, chills, rash, headache, visual changes, dizziness, shortness of breath, chest pain, palpitations, nausea, vomiting, diarrhea, constipation, abdominal pain, or any urinary issues. PMFSH Past Medical History Medical History HLD (hyperlipidemia) Surgical History Surgical History History of ankle surgery right ankle (11) S/P foot surgery, left Family History Family History Father Asthma History of ETOH abuse Sibling History of ETOH abuse Grandparent Cancer Other Family history of mental disorder Social History Social History Smoking packs per day: 0.75 Smoking cigarettes per day: 15.0 Years smoked: 28 Smoking pack-years: 21.00 Smoking status: Current every day smoker Tobacco type: cigarettes Alcohol intake: never Alcohol use details: occasionally Substance use: never Substance use type: does not use Lack of Transportation: No Lack of Food: Never True Current Housing: I Have Housing Concerned About Future Housing: No Difficulty Paying Gas/Electric Bills: No Difficulty Paying for Meds: No Currently Unemployed: No Education: Decline to Answer Difficulty w/ Childcare or Family Care: No Living arrangements: alone Occupation/Education: occupation 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 There is no relevant family history pertinent to the patient complaint. Exam Narrative: General: Well-developed, obese, in no apparent distress Head: Normocephalic, atraumatic Eyes: Pupils equally round and reactive to light bilaterally, EOM intact, sclera and conjunctive clear, no discharge, lids normal Ears: TMs intact and clear, ear canals clear, no drainage, grossly hearing normal. Nose: Nares patent, green nasal discharge, moderate inflammation, maxillary and frontal sinus tenderness. Mouth: Oral pharynx without lesions or masses, good dentition, MMM. Neck: Supple, trachea midline, no enlargement of anterior or posterior cervical nodes, no thyroid masses or goiter palpable. Cardio: Regular rate and rhythm, s1 and s2 normal, no murmur appreciated. Resp: Clear to auscultation bilaterally, no rhonchi, rales, wheezing or rubs Course Course Emergency Course: Portions of this record may have been created with voice recognition software. Level of Care: Express Care Visit Vital Signs Vital signs: Vital signs reviewed MDM - URI/Sore Throat MDM Narrative Medical decision making narrative: At the time of visit patient is resting comfortably on the exam table. I suspect patient has acute bacterial rhinosinusitis. Patient is nontoxic appearing. Prescription for Augmentin and prednisone was sent to the pharmacy. [employer]
== END 2023-04-25 17:55 | disposition home or self-care (01) ==
PROVIDERS: Emergency Provider Nurse Practitioner Family; PCP Family Medicine
DX: J01.90 Acute sinusitis, unspecified (principal); F17.210 Nicotine dependence, cigarettes, uncomplicated; E78.5 Hyperlipidemia, unspecified
CPT/HCPCS: 99213; G0463

== ENCOUNTER 2023-07-30 11:16 | Outpatient (CLI) | payer BC, SELFPAY ==
[2023-07-30 19:10] LABS: Alanine Aminotransferase 35 U/L (6-50); Albumin Level 4.6 g/dL (3.5-5.1); Alkaline Phosphatase 67 U/L (38-126); Anion Gap 6 mmol/L (8-16); Aspartate Amino Transferase 53 U/L (17-59); Bilirubin,Total 0.6 mg/dL (0.2-1.3); Blood Urea Nitrogen 14 mg/dL (9-20); Calcium 9.9 mg/dL (8.4-10.2); Carbon Dioxide 27 mmol/L (22-30); Chloride 105 mmol/L (98-107); Cholesterol 206 mg/dL (0-200); Estimated Glomerular Filt Rate > 60; Glucose 93 mg/dL (65-110); HDL Direct 40 mg/dL; Potassium 4.4 mmol/L (3.4-5.0); Sodium 138 mmol/L (137-145); Triglycerides 186 mg/dL (<150)
[2023-07-30 19:21] LABS: LDL Cholesterol Direct 124 mg/dL
[2023-07-30 19:28] LABS: Hemoglobin A1C 6.3 % (<5.7)
[2023-07-30 19:37] LABS: Creatinine Urine 130.2 mg/dL
[2023-07-30 19:43] LABS: MALB Creatinine Ratio 35.7 mg/g (0-30); Microalbumin Urine Random 46.5 mg/L (0-16.7)
== END 2023-07-30 11:17 | disposition home or self-care (01) ==
LOC: ANHBWCLAB 11:17
PROVIDERS: PCP Nurse Practitioner Adult Health; Visit Provider Nurse Practitioner Adult Health
DX: E11.9 Type 2 diabetes mellitus without complications (principal)
CPT/HCPCS: 36415; 80053; 80061; 82043; 83036

== ENCOUNTER 2023-10-22 09:20 | Outpatient (CLI) | payer BC, SELFPAY ==
[2023-10-22 19:11] LABS: Hematocrit 51.6 % (42.0-52.0); Hemoglobin 16.8 g/dL (14.0-18.0); Mean Corpuscular HGB Conc 32.6 g/dl (32-36); Mean Corpuscular Hemoglobin 31.2 pg (26-34); Mean Corpuscular Volume 95.9 fl (80-100); Mean Platelet Volume 9.7 fl (7.4-10.4); Platelet Count Result 250 k/mm3 (150-375); Red Blood Count 5.38 M/mm3 (4.6-6.20); White Blood Count 7.9 K/mm3 (4.5-10.0)
[2023-10-22 19:42] LABS: Alanine Aminotransferase 21 U/L (6-50); Albumin Level 4.5 g/dL (3.5-5.1); Alkaline Phosphatase 65 U/L (38-126); Amylase 130 U/L (30-110); Anion Gap 7 mmol/L (4-12); Aspartate Amino Transferase 31 U/L (17-59); Bilirubin,Total 0.4 mg/dL (0.2-1.3); Blood Urea Nitrogen 12 mg/dL (9-20); Calcium 9.1 mg/dL (8.4-10.2); Carbon Dioxide 23 mmol/L (22-30); Chloride 110 mmol/L (98-107); Estimated Glomerular Filt Rate > 60; Glucose 87 mg/dL (65-110); Lipase 495 U/L (23-300); Potassium 4.1 mmol/L (3.4-5.0); Sodium 140 mmol/L (137-145)
== END 2023-10-22 09:21 | disposition home or self-care (01) ==
LOC: ANHBWCLAB 09:21
PROVIDERS: PCP Nurse Practitioner Adult Health; Visit Provider Nurse Practitioner Adult Health
DX: R10.10 Upper abdominal pain, unspecified (principal)
CPT/HCPCS: 36415; 80053; 82150; 83690; 85027

== ENCOUNTER 2023-10-23 08:57 | Outpatient (CLI) | payer BC, SELFPAY ==
--- NOTE | ~2023-10-23 | CT_ITS ---
EXAMINATION: CT abdomen wo con DATE: 10/23/2023 09:44 INDICATION: Abnormal levels of other serum enzymes TECHNIQUE: Computed tomography (CT) of the abdomen and pelvis was performed without intravenous contr ast. Automated exposure control and iterative reconstruction technique were employed. The dose-length product was 841.37 mGy-cm. COMPARISON: None FINDINGS: Atelectasis/scarring in the lingula and right middle lobe. Arch size is normal. No pericardial or ple ural effusion. Liver, gallbladder, spleen, pancreas, bilateral adrenal glands and kidneys are normal. No intra or extrahepatic biliary ductal dilation. Normal anatomic variant retroaortic left renal vei n. Visualized portions of the bowels including the appendix are normal. No pathologically enlarged ab dominal lymphadenopathy. Moderate to severe lumbar spondylosis. IMPRESSION: 1. No acute intra-abdominal process. Reviewed, dictated and finalized at location A.
== END 2023-10-23 08:58 | disposition home or self-care (01) ==
PROVIDERS: PCP Nurse Practitioner Adult Health; Visit Provider Nurse Practitioner Adult Health
DX: K52.9 Noninfective gastroenteritis and colitis, unspecified (principal); R74.8 Abnormal levels of other serum enzymes
CPT/HCPCS: 74150

== ENCOUNTER 2023-11-26 09:15 | Outpatient (CLI) | payer BC, SELFPAY ==
[2023-11-26 19:06] LABS: Hematocrit 49.8 % (42.0-52.0); Hemoglobin 16.5 g/dL (14.0-18.0); Mean Corpuscular HGB Conc 33.1 g/dl (32-36); Mean Corpuscular Hemoglobin 31.5 pg (26-34); Mean Platelet Volume 9.4 fl (7.4-10.4); Platelet Count Result 243 k/mm3 (150-375); Red Blood Count 5.24 M/mm3 (4.6-6.20); Red Cell Distribution Width 13.5 % (11.5-14.5); White Blood Count 10.1 K/mm3 (4.5-10.0)
[2023-11-26 20:12] LABS: Alanine Aminotransferase 19 U/L (6-50); Albumin Level 4.6 g/dL (3.5-5.1); Alkaline Phosphatase 72 U/L (38-126); Anion Gap 9 mmol/L (4-12); Aspartate Amino Transferase 50 U/L (17-59); Bilirubin,Total 0.5 mg/dL (0.2-1.3); Blood Urea Nitrogen 14 mg/dL (9-20); Calcium 9.3 mg/dL (8.4-10.2); Carbon Dioxide 24 mmol/L (22-30); Chloride 107 mmol/L (98-107); Cholesterol 163 mg/dL (0-200); Estimated Glomerular Filt Rate > 60; Glucose 74 mg/dL (65-110); HDL Direct 35 mg/dL; Potassium 4.6 mmol/L (3.4-5.0); Sodium 140 mmol/L (137-145); Triglycerides 269 mg/dL (<150)
[2023-11-26 20:21] LABS: Hemoglobin A1C 5.6 % (<5.7)
[2023-11-26 20:23] LABS: LDL Cholesterol Direct 100 mg/dL
[2023-11-26 20:25] LABS: Creatinine Urine 67.7 mg/dL
[2023-11-26 20:28] LABS: MALB Creatinine Ratio 58.5 mg/g (0-30); Microalbumin Urine Random 39.6 mg/L (0-16.7)
== END 2023-11-26 09:16 | disposition home or self-care (01) ==
LOC: ANHBWCLAB 09:16
PROVIDERS: PCP Nurse Practitioner Adult Health; Visit Provider Nurse Practitioner Adult Health
DX: E11.9 Type 2 diabetes mellitus without complications (principal)
CPT/HCPCS: 36415; 80053; 80061; 82043; 82565; 83036; 85027